=== PATIENT | female | born 1960 | race Caucasian/White ===

== ENCOUNTER 2018-05-05 05:24 | Emergency (ER) | payer OTHER ==
--- NOTE | 2018-05-05 05:46 | ER ---
Nurse's Notes [facility] Name: Gina Gomez Age: 57 yrs Sex: Female : 1960 Arrival Date: 05/05/2018 Time: 05:25 Bed 5 Private MD: Brain Middleton Diagnosis: Pneumonia Presentation: 05/05 05:33 Presenting complaint: Patient states: Cough for the past few days and SOB during the ao night. Patient also C/O shoulder pain. Transition of care: patient was not received from another setting of care. Onset of symptoms was May 01, 2018. Risk Assessment: Do you want to hurt yourself or someone else? Patient reports no desire to harm self or others. Initial Sepsis Screen: Does the patient meet any 2 criteria? No. Patient's initial sepsis screen is negative. Does the patient have a suspected source of infection? No. Patient's initial sepsis screen is negative. Care prior to arrival: None. 05:33 Method Of Arrival: Ambulatory ao 05:33 Acuity: FREDERIC 3 ao Triage Assessment: 05:38 General: Appears in no apparent distress. uncomfortable. Respiratory: Reports shortness ao of breath on exertion Onset: The symptoms/episode began/occurred yesterday, the patient has moderate shortness of breath. Historical: - Allergies: 05:36 No Known Allergies; ao - Home Meds: 05:36 Simvastatin Oral [Active]; Lisinopril Oral [Active]; ao - PMHx: 05:36 Hyperlipidemia; Hypertension; ao - PSHx: 05:36 Cholecystectomy; Hysterectomy; ao - Immunization history:: Adult Immunizations up to date. - Social history:: Smoking status: unknown. - Ebola Screening: : Patient negative for fever greater than or equal to 101.5 degrees Fahrenheit, and additional compatible Ebola Virus Disease symptoms Patient denies exposure to infectious person Patient denies travel to an Ebola-affected area in the 21 days before illness onset. - Family history:: not pertinent. - Hospitalizations: : No recent hospitalization is reported. Screenin:39 Abuse screen: Denies threats or abuse. Denies injuries from another. Nutritional ao screening: No deficits noted. Tuberculosis screening: No symptoms or risk factors identified. Fall Risk None identified. Assessment: 05:37 General: Appears in no apparent distress. comfortable, Behavior is calm, cooperative, ao appropriate for age. Pain: Complains of pain in Right shoulder. Neuro: Level of Consciousness is awake, alert, obeys commands, Oriented to person, place, time, situation, Appropriate for age Moves all extremities. Full function Speech is normal, Facial symmetry appears normal. Cardiovascular: Heart tones S1 S2 Capillary refill < 3 seconds Patient's skin is warm and dry. Rhythm is regular. Respiratory: Airway is patent Respiratory effort is even, unlabored, Respiratory pattern is regular, symmetrical, Breath sounds are clear bilaterally. GI: Abdomen is obese. : No signs and/or symptoms were reported regarding the genitourinary system. EENT: No signs and/or symptoms were reported regarding the EENT system. Derm: Skin is intact, Skin is pink, warm \T\ dry. normal, Skin temperature is warm. Musculoskeletal: Circulation, motion, and sensation intact. Range of motion: intact in all extremities. Vital Signs: 05:34 BP 147 / 74; Pulse 93; Resp 20; Temp 98.6(O); Pulse Ox 96% on R/A; Weight 104.33 kg ao (R); Height 5 ft. 5 in. (165.10 cm); Pain 2; 06:01 BP 131 / 67; Pulse 86; Resp 20; Pulse Ox 96% on R/A; ak1 05:34 Body Mass Index 38.27 (104.33 kg, 165.10 cm) ao ED Course: 05:25 Patient arrived in ED. es 05:26 Brain Middleton MD is Private Physician. es 05:32 Kalyan Caruso MD is Attending Physician. rn 05:33 Qamar Garcia RN is Primary Nurse. ao 05:34 Triage completed. ao 05:36 Arm band placed on right wrist. Patient placed in an exam room, on a stretcher, on ao pulse oximetry, Patient notified of wait time. 05:39 Patient has correct armband on for positive identification. Pulse ox on. NIBP on. ao 05:44 Brain Middleton MD is Referral Physician. rn 06:02 No provider procedures requiring assistance completed. Patient did not have IV access ak1 during this emergency room visit. Administered Medications: 05:45 Drug: LevaQUIN 750 mg Route: PO; ak1 06:01 Follow up: Response: No adverse reaction ak1 05:46 Drug: Xopenex 1.25 mg Route: Inhalation; ak1 05:46 Drug: Tussionex Pennkinetic ER 5 ml Route: PO; ak1 06:01 Follow up: Response: No adverse reaction ak1 Outcome: 05:45 Discharge ordered by . rn 06:02 Condition: stable ak1 06:02 Discharge instructions given to patient, family, Instructed on discharge instructions, follow up and referral plans. no drinking with medication, no driving heavy equipment, medication usage, Demonstrated understanding of instructions, follow-up care, medications, Prescriptions given X 3. 06:02 Discharged to home ambulatory, with family. ak1 06:02 Patient left the ED. ak1 Signatures: Sherry Wright Roman, MD MD rn Krenek, Amber, RN RN ak1 Qamar Garcia RN RN ao
--- NOTE | 2018-05-05 05:46 | EDPHYS ---
Physician Documentation [facility] Name: Gina Gomez Age: 57 yrs Sex: Female : 1960 Arrival Date: 05/05/2018 Time: 05:25 Bed 5 Private MD: Brain Middleton ED Physician Kalyan Caruso HPI: 05/05 05:40 This 57 yrs old Female presents to ER via Ambulatory with complaints of rn Cough, Breathing Difficulty. 05:40 The patient or guardian reports cough, difficulty breathing. Onset: The rn symptoms/episode began/occurred 5 day(s) ago. Severity of symptoms: At their worst the symptoms were moderate, in the emergency department the symptoms have improved. Associated signs and symptoms: Pertinent positives: rhinorrhea. The patient has not experienced similar symptoms in the past. The patient has not recently seen a physician. Reports family member with similar symptoms, but cough not improving, + mild sob, non-productive cough, no fever, no chills, sob and trouble breathing during coughing spells, but no dyspnea with exertion. Non-smoker. . Historical: - Allergies: 05:36 No Known Allergies; ao - Home Meds: 05:36 Simvastatin Oral [Active]; Lisinopril Oral [Active]; ao - PMHx: 05:36 Hyperlipidemia; Hypertension; ao - PSHx: 05:36 Cholecystectomy; Hysterectomy; ao - Immunization history:: Adult Immunizations up to date. - Social history:: Smoking status: unknown. - Ebola Screening: : Patient negative for fever greater than or equal to 101.5 degrees Fahrenheit, and additional compatible Ebola Virus Disease symptoms Patient denies exposure to infectious person Patient denies travel to an Ebola-affected area in the 21 days before illness onset. - Family history:: not pertinent. - Hospitalizations: : No recent hospitalization is reported. ROS: 05:40 Constitutional: Negative for fever, chills, and weight loss, Eyes: Negative for injury, rn pain, redness, and discharge, Neck: Negative for injury, pain, and swelling, Cardiovascular: Negative for chest pain, palpitations, and edema, Respiratory: + cough and sob Abdomen/GI: Negative for abdominal pain, nausea, vomiting, diarrhea, and constipation, MS/Extremity: Negative for injury and deformity, Skin: Negative for injury, rash, and discoloration, Neuro: Negative for headache, weakness, numbness, tingling, and seizure. Exam: 05:40 Constitutional: This is a well developed, well nourished patient who is awake, alert, rn and in no acute distress. Head/Face: Normocephalic, atraumatic. Eyes: Pupils equal round and reactive to light, extra-ocular motions intact. Lids and lashes normal. Conjunctiva and sclera are non-icteric and not injected. Cornea within normal limits. Periorbital areas with no swelling, redness, or edema. ENT: MMM, no stridor Cardiovascular: Regular rate and rhythm with a normal S1 and S2. No gallops, murmurs, or rubs. Normal PMI, no JVD. No pulse deficits. Respiratory: mild tachypnea, no wheezing, no retractions, speaking full sentences Abdomen/GI: Soft, non-tender, with normal bowel sounds. No distension or tympany. No guarding or rebound. No evidence of tenderness throughout. Skin: Warm, dry with normal turgor. Normal color with no rashes, no lesions, and no evidence of cellulitis. MS/ Extremity: Pulses equal, no cyanosis. Neurovascular intact. Full, normal range of motion. Equal circumference. Neuro: Awake and alert, GCS 15, oriented to person, place, time, and situation. Cranial nerves II-XII grossly intact. Motor strength 5/5 in all extremities. Sensory grossly intact. Cerebellar exam normal. Normal gait. Vital Signs: 05:34 BP 147 / 74; Pulse 93; Resp 20; Temp 98.6(O); Pulse Ox 96% on R/A; Weight 104.33 kg ao (R); Height 5 ft. 5 in. (165.10 cm); Pain 2/10; 06:01 BP 131 / 67; Pulse 86; Resp 20; Pulse Ox 96% on R/A; ak1 05:34 Body Mass Index 38.27 (104.33 kg, 165.10 cm) ao MDM: 05:33 Patient medically screened. rn 05:40 Differential Diagnosis: Bronchitis Upper Respiratory Infection Sinusitis Viral Syndrome rn Pneumonia. Data reviewed: vital signs, nurses notes, and as a result, I will discharge patient. Counseling: I had a detailed discussion with the patient and/or guardian regarding: the historical points, exam findings, and any diagnostic results supporting the discharge/admit diagnosis, the need for outpatient follow up, to return to the emergency department if symptoms worsen or persist or if there are any questions or concerns that arise at home. Response to treatment: the patient's symptoms have mildly improved after treatment, and as a result, I will discharge patient. Special discussion: I discussed with the patient/guardian in detail that at this point there is no indication for admission to the hospital. It is understood, however, that if the symptoms persist or worsen the patient needs to return immediately for re-evaluation. Based on the history and exam findings, there is no indication for further emergent testing or inpatient evaluation. I discussed with the patient/guardian the need to see the primary care provider for further evaluation of the symptoms. ED course: Will treat with levaquin for clinical pneumonia, non-smoker, no asthma, improved with neb treatment and cough medication, return precautions given, will f/u with pcp.. Administered Medications: 05:45 Drug: LevaQUIN 750 mg Route: PO; ak1 06:01 Follow up: Response: No adverse reaction ak1 05:46 Drug: Xopenex 1.25 mg Route: Inhalation; ak1 05:46 Drug: Tussionex Pennkinetic ER 5 ml Route: PO; ak1 06:01 Follow up: Response: No adverse reaction ak1 Disposition: 05/05/18 05:45 Discharged to Home. Impression: Pneumonia. - Condition is Stable. - Discharge Instructions: Community-Acquired Pneumonia, Adult. - Prescriptions for Levaquin 750 mg Oral Tablet - take 1 tablet by ORAL route once daily for 10 days; 10 tablet. Albuterol Sulfate 90 mcg/actuation - inhale 1-2 puff by INHALATION route every 4-6 hours; 1 Inhaler. Guaifenesin AC 10- 100 mg/5 mL Oral Liquid - take 10 milliliter by ORAL route every 4 hours As needed; 240 milliliter. - Medication Reconciliation Form, Thank You Letter, Antibiotic Education, Prescription Opioid Use form. - Work release form (05/05/18 06:03). bb - Follow up: Brain Middleton MD; When: 2 - 3 days; Reason: Recheck today's complaints, Re-evaluation by your physician. - Problem is new. - Symptoms have improved. Signatures: Kalyan Caruso MD MD rn Krenek, Amber, RN RN ak1 Qamar Garcia RN RN Sade Pedroza RN bb Corrections: (The following items were deleted from the chart) 06:02 05:45 05/05/2018 05:45 Discharged to Home. Impression: Pneumonia. Condition is Stable. ak1 Forms are Medication Reconciliation Form, Thank You Letter, Antibiotic Education, Prescription Opioid Use. Follow up: Brain Middleton; When: 2 - 3 days; Reason: Recheck today's complaints, Re-evaluation by your physician. Problem is new. Symptoms have improved. rn
[2018-05-05] MEDS ORDERED: levoFLOXacin 750 MG TAB ONE (05:47)
[2018-05-05] MEDS ORDERED: HYDROCODONE/CHLORPHEN 5 ML/OSYR ONE (05:47)
[2018-05-05] MEDS ORDERED: LEVALBUTEROL 1.25 MG/3 ML NEB ONE (05:49)
[2018-05-05 06:12] VITALS: TEMP 98.6; O2SAT 96
[2018-05-05 06:14] VITALS: BP 131/67
== END 2018-05-05 06:02 | disposition home or self-care (01) ==
LOC: ER 05:24
DX: J18.9 Pneumonia, unspecified organism (principal); I10 Essential (primary) hypertension; E78.5 Hyperlipidemia, unspecified
CPT/HCPCS: 99284

== ENCOUNTER 2018-10-03 08:44 | Emergency (ER) | payer OTHER, SELFPAY ==
--- NOTE | 2018-10-03 09:28 | ER ---
Nurse's Notes [facility] Name: Gina Gomez Age: 57 yrs Sex: Female : 1960 Arrival Date: 10/03/2018 Time: 08:45 Bed 15 Private MD: Brain Middleton Diagnosis: Conjunctivitis Presentation: 10/03 09:06 Presenting complaint: Patient states: L eye swelling and drainage that patient noticed ss this morning. "it only felt like I had something in it yesterday". Transition of care: patient was not received from another setting of care. Onset of symptoms was October 03, 2018. Risk Assessment: Do you want to hurt yourself or someone else? Patient reports no desire to harm self or others. Initial Sepsis Screen: Does the patient meet any 2 criteria? No. Patient's initial sepsis screen is negative. Does the patient have a suspected source of infection? No. Patient's initial sepsis screen is negative. Care prior to arrival: None. 09:06 Method Of Arrival: Ambulatory ss 09:06 Acuity: FREDERIC 5 ss Historical: - Allergies: 09:09 No Known Allergies; ss - Immunization history:: Adult Immunizations up to date. - Social history:: Smoking status: Patient/guardian denies using tobacco. - Ebola Screening: : Patient denies exposure to infectious person Patient denies travel to an Ebola-affected area in the 21 days before illness onset. Screenin:20 Abuse screen: Denies threats or abuse. Nutritional screening: No deficits noted. em Tuberculosis screening: No symptoms or risk factors identified. Fall Risk None identified. Assessment: 09:20 General: Appears in no apparent distress. uncomfortable, Behavior is calm, cooperative, em Denies fever. Pain: Complains of pain in left eye Pain currently is 3 out of 10 on a pain scale. Neuro: Level of Consciousness is awake, alert, obeys commands, Oriented to person, place, time, situation. Cardiovascular: Capillary refill < 3 seconds Patient's skin is warm and dry. Respiratory: Airway is patent Respiratory effort is even, unlabored, Respiratory pattern is regular, symmetrical. EENT: Eyes are tearing on left eye with exudate noted from left eye Sclera/Cornea are reddened in left eye Reports blurred vision in left eye since yesterday. Derm: Skin is intact, is healthy with good turgor, Skin is pink, warm \\T\\ dry. Musculoskeletal: Range of motion: intact in all extremities, Swelling present in left upper eyelid and left lower eyelid. 09:25 Reassessment: Patient appears in no apparent distress at this time. I agree with the sv above assessment. Vital Signs: 09:09 BP 143 / 77; Pulse 78; Resp 16; Temp 98.0(TE); Pulse Ox 97% on R/A; Weight 106.59 kg; ss Height 5 ft. 6 in. (167.64 cm); Pain 3/10; 09:09 Body Mass Index 37.93 (106.59 kg, 167.64 cm) ED Course: 08:45 Patient arrived in ED. as 08:46 Brain Middleton MD is Private Physician. as 09:09 Triage completed. ss 09:09 Arm band placed on right wrist. ss 09:13 Vinicius Wright PA is PHCP. jr8 09:13 Paulino Tapia MD is Attending Physician. jr8 09:13 Landen Garibay LVN is Primary Nurse. em 09:20 Patient has correct armband on for positive identification. Bed in low position. Call em light in reach. Side rails up X2. Adult w/ patient. 09:27 Myla Chairez MD is Referral Physician. jr8 09:50 No provider procedures requiring assistance completed. Patient did not have IV access em during this emergency room visit. Administered Medications: 09:34 Not Given (Other Intervention Used): Gentamicin Ointment 0.3 % 0.5 inches Ophthalmic em once; Left Eye 09:46 Drug: Tobramycin Ointment (0.3 %) 0.5 inches Route: Ophthalmic; Site: left eye; em 09:51 Follow up: Response: Medication administered at discharge. em Outcome: 09:28 Discharge ordered by . jr8 09:51 Discharged to home ambulatory, with family. em 09:51 Condition: good 09:51 Discharge instructions given to patient, family, Instructed on discharge instructions, follow up and referral plans. medication usage, Demonstrated understanding of instructions, follow-up care, medications, Prescriptions given X 1. 09:51 Patient left the ED. em Signatures: Rula Conley RN RN Landen Garibay LVN LVN em Anjelica Martinez Shelby, RN RN ss Vinicius Wright, RAMIREZ PA jr8
--- NOTE | 2018-10-03 09:28 | EDPHYS ---
Physician Documentation [facility] Name: Gina Gomez Age: 57 yrs Sex: Female : 1960 Arrival Date: 10/03/2018 Time: 08:45 Bed 15 Private MD: Brain Middleton ED Physician Paulino Tapia HPI: 10/03 09:24 This 57 yrs old Female presents to ER via Ambulatory with complaints of Eye jr8 Swelling. 09:24 The patient is experiencing pain, redness, tearing. Onset: The symptoms/episode jr8 began/occurred acutely, yesterday, and became worse today. Duration: the symptoms are continuous. Aggravated by nothing. Alleviated by nothing. Associated signs and symptoms: Pertinent positives: None. Patient does not utilize any form of vision correction. Severity of symptoms: At their worst the symptoms were moderate in the emergency department the symptoms are unchanged. The patient has not experienced similar symptoms in the past. The patient has not recently seen a physician. Stated that she has had a cold for the past few days. Yesterday felt that her left eye was hurting an had mild irritation. Today woke up and could not open eye because of discharge. Now has increased pain, swelling, and redness . Historical: - Allergies: 09:09 No Known Allergies; ss - Immunization history:: Adult Immunizations up to date. - Social history:: Smoking status: Patient/guardian denies using tobacco. - Ebola Screening: : Patient denies exposure to infectious person Patient denies travel to an Ebola-affected area in the 21 days before illness onset. ROS: 09:24 ENT: Negative for injury, pain, and discharge. Positive for rhinorrhea and sinus jr8 congestion Neck: Negative for injury, pain, and swelling, Cardiovascular: Negative for chest pain, palpitations, and edema, Respiratory: Negative for shortness of breath, cough, wheezing, and pleuritic chest pain, Abdomen/GI: Negative for abdominal pain, nausea, vomiting, diarrhea, and constipation, Back: Negative for injury and pain, MS/Extremity: Negative for injury and deformity, Skin: Negative for injury, rash, and discoloration, Neuro: Negative for headache, weakness, numbness, tingling, and seizure. 09:24 Eyes: Positive for discharge, matting, pain, redness, swelling, tearing, of the left eye. Exam: 09:24 Head/Face: Normocephalic, atraumatic. ENT: Nares patent. No nasal discharge, no jr8 septal abnormalities noted. Tympanic membranes are normal and external auditory canals are clear. Oropharynx with no redness, swelling, or masses, exudates, or evidence of obstruction, uvula midline. Mucous membranes moist. Neck: Trachea midline, no thyromegaly or masses palpated, and no cervical lymphadenopathy. Supple, full range of motion without nuchal rigidity, or vertebral point tenderness. No Meningismus. Cardiovascular: Regular rate and rhythm with a normal S1 and S2. No gallops, murmurs, or rubs. Normal PMI, no JVD. No pulse deficits. Respiratory: Lungs have equal breath sounds bilaterally, clear to auscultation and percussion. No rales, rhonchi or wheezes noted. No increased work of breathing, no retractions or nasal flaring. Abdomen/GI: Soft, non-tender, with normal bowel sounds. No distension or tympany. No guarding or rebound. No evidence of tenderness throughout. Back: No spinal tenderness. No costovertebral tenderness. Full range of motion. Skin: Warm, dry with normal turgor. Normal color with no rashes, no lesions, and no evidence of cellulitis. MS/ Extremity: Pulses equal, no cyanosis. Neurovascular intact. Full, normal range of motion. Neuro: Awake and alert, GCS 15, oriented to person, place, time, and situation. Cranial nerves II-XII grossly intact. Motor strength 5/5 in all extremities. Sensory grossly intact. Cerebellar exam normal. Normal gait. 09:24 Eyes: Periorbital structures: swelling, that is mild, on the left supraorbital ridge and left upper eyelid, Pupils: equal, round, and reactive to light and accomodation, Extraocular movements: intact throughout, Conjunctiva: chemosis, that is moderate, in left eye, exudate, in the left eye, injected, in the left eye, tearing noted, in left eye, Corneas: are normal, Sclera: no appreciated abnormality, Anterior chamber: normal, Lids and lashes: appear normal, Examination of the other eye reveals no obvious gross abnormality. Vital Signs: 09:09 BP 143 / 77; Pulse 78; Resp 16; Temp 98.0(TE); Pulse Ox 97% on R/A; Weight 106.59 kg; ss Height 5 ft. 6 in. (167.64 cm); Pain 3/10; 09:09 Body Mass Index 37.93 (106.59 kg, 167.64 cm) ss MDM: 09:13 Patient medically screened. jr8 09:24 Data reviewed: vital signs, nurses notes, and as a result, I will discharge patient. jr8 Data interpreted: Pulse oximetry: on room air is 97 %. Interpretation: normal. Counseling: I had a detailed discussion with the patient and/or guardian regarding: the historical points, exam findings, and any diagnostic results supporting the discharge/admit diagnosis, the need for outpatient follow up, an opthalmologist, to return to the emergency department if symptoms worsen or persist or if there are any questions or concerns that arise at home. Administered Medications: 09:34 Not Given (Other Intervention Used): Gentamicin Ointment 0.3 % 0.5 inches Ophthalmic em once; Left Eye 09:46 Drug: Tobramycin Ointment (0.3 %) 0.5 inches Route: Ophthalmic; Site: left eye; em 09:51 Follow up: Response: Medication administered at discharge. em Disposition: 10:25 Co-signature as Attending Physician, Paulino Tapia MD I agree with the assessment and kdr plan of care. Disposition: 10/03/18 09:28 Discharged to Home. Impression: Conjunctivitis. - Condition is Stable. - Discharge Instructions: Bacterial Conjunctivitis, Viral Conjunctivitis. - Prescriptions for Gentamicin 0.3 % (3 mg/gram) Ophthalmic Ointment - apply 0.5 inch by OPHTHALMIC route 2-3 times daily for 7 days; 3.5 gram. - Work release form, Medication Reconciliation Form, Thank You Letter, Antibiotic Education, Prescription Opioid Use form. - Follow up: Myla Chairez MD; When: 2 - 3 days; Reason: Recheck today's complaints, Continuance of care, Re-evaluation by your physician. - Problem is new. - Symptoms have improved. Signatures: Paulino Tapia MD MD [facility] Landen Garibay, VACUUM FORM OPERATOR VACUUM FORM OPERATOR em Alicia Coulter RN RN ss Vinicius Wright PA PA jr8 Corrections: (The following items were deleted from the chart) 09:51 09:28 10/03/2018 09:28 Discharged to Home. Impression: Conjunctivitis. Condition is em Stable. Forms are Medication Reconciliation Form, Thank You Letter, Antibiotic Education, Prescription Opioid Use. Follow up: Myla Chairez; When: 2 - 3 days; Reason: Recheck today's complaints, Continuance of care, Re-evaluation by your physician. Problem is new. Symptoms have improved. jr8
[2018-10-03] MEDS ORDERED: GENTAMICIN 0.3% OPTH DROP 5ML ONE (09:38)
[2018-10-03] MEDS ORDERED: TOBRAMYCIN SULF 0.3% OPTH OINT OPTH ONE (09:45)
[2018-10-03 09:58] VITALS: BP 143/77; TEMP 98; O2SAT 97
== END 2018-10-03 09:51 | disposition home or self-care (01) ==
LOC: ER 08:44
DX: H10.9 Unspecified conjunctivitis (principal)
CPT/HCPCS: 99283

== ENCOUNTER 2018-11-22 13:19 | Emergency (ER) | payer SELFPAY ==
[2018-11-22] MEDS ORDERED: FENTANYL CITR 100 MCG/2 ML ONE (15:03)
[2018-11-22] MEDS ORDERED: DIAZEPAM 2 MG TABLET ONE (15:03)
[2018-11-22] MEDS ORDERED: TETANUS & DIPHTHERIA TOX,ADULT 0.5 ML VIAL ONE (15:03)
--- NOTE | 2018-11-22 15:06 | RAD REPORT ---
EXAM DESCRIPTION: CT - Head C Spine Cap Wo Con - 11/22/2018 2:34 pm TECHNIQUE: Computed axial tomography of the head and cervical spine was obtained. Coronal and sagitt al reconstruction was performed Computed axial tomography of the chest, abdomen and pelvis was obtained. Contrast was not requested. All CT scans are performed using dose optimization technique as appropriate and may include automated exposure control or mA/KV adjustment according to patient size. CLINICAL HISTORY: Head and neck injury with chest and abdominal pain status post fall COMPARISON: CT chest 2011 FINDINGS: An intracranial bleed is not seen. The ventricles are normal in caliber. An extra-axial fluid collection is not noted. . Fluid is present within the sphenoid sinus which may indicate acute sinusitis. A cervical fracture is not seen. No dislocation is noted. The evaluation of mediastinum, tanmay, vessels, solid organs and bowel are limited secondary to the lac k of contrast administration. A mediastinal hematoma is not noted. A pleural effusion is not seen. A lung contusion is not present. The liver,spleen, pancreas, adrenals,kidneys and bladder appear grossly normal. IMPRESSION: 1. No acute intracranial abnormality is seen. 2. A cervical fracture is not visualized. If the patient continues have symptoms to suggest intracran ial/spinal cord pathology MRI be recommended 3. No traumatic abnormality involving the chest/abdomen/pelvis.
--- NOTE | 2018-11-22 15:07 | RAD REPORT ---
EXAM DESCRIPTION: RAD - Elbow Left 3 View - 11/22/2018 2:33 pm CLINICAL HISTORY: Left elbow pain status post trauma FINDINGS: No fracture or dislocation is seen.
--- NOTE | 2018-11-22 15:10 | RAD REPORT ---
EXAM DESCRIPTION: RAD - Wrist Right 3 View - 11/22/2018 2:33 pm CLINICAL HISTORY: Right wrist pain status post injury FINDINGS: Osteoporosis Curvilinear lucency within the distal radius likely represents a nondisplaced fracture which extends intraarticularly No dislocation
--- NOTE | 2018-11-22 15:11 | EDPHYS ---
Physician Documentation [facility] Name: Gina Gomez Age: 58 yrs Sex: Female : 1960 Arrival Date: 11/22/2018 Time: 13:22 Bed 19 Private MD: Brain Middleton ED Physician Colin Augustin HPI: 11/22 14:08 This 58 yrs old Female presents to ER via Ambulatory with complaints of Fall snw Injury. 14:08 Details of fall: The patient fell from an upright position, while walking. Onset: The snw symptoms/episode began/occurred suddenly, just prior to arrival. Associated injuries: The patient sustained injury to the head, contusion, left elbow, contusion, decreased range of motion, ecchymosis, painful injury, dorsal aspect of right wrist, contusion, decreased range of motion, painful injury, left knee, abrasion, contusion. Severity of symptoms: At their worst the symptoms were moderate. The patient has not experienced similar symptoms in the past. The patient has not recently seen a physician. 14:10 pt states she tripped over a rug in her garage. snw Historical: - Allergies: 13:33 No Known Allergies; la1 - PMHx: 13:33 Hyperlipidemia; Hypertension; la1 - Immunization history:: Adult Immunizations up to date. - Social history:: Smoking status: Patient/guardian denies using tobacco. - Ebola Screening: : No symptoms or risks identified at this time. ROS: 14:06 Constitutional: Negative for fever, chills, and weight loss, Eyes: Negative for injury, snw pain, redness, and discharge, ENT: Negative for injury, pain, and discharge, Neck: Negative for injury, pain, and swelling, Cardiovascular: Negative for chest pain, palpitations, and edema, Respiratory: Negative for shortness of breath, cough, wheezing, and pleuritic chest pain, Abdomen/GI: Negative for abdominal pain, nausea, vomiting, diarrhea, and constipation, Back: Negative for injury and pain, : Negative for injury, bleeding, discharge, and swelling. 14:06 Neuro: Negative for headache, weakness, numbness, tingling, and seizure, + frontal head trauma with fall 14:06 MS/extremity: Positive for pain to left ribs, left elbow, right wrist, and left knee. 14:06 Skin: Positive for abrasion(s). Exam: 14:03 Constitutional: This is a well developed, well nourished patient who is awake, alert, snw and in no acute distress. Head/Face: Normocephalic, atraumatic. Eyes: Pupils equal round and reactive to light, extra-ocular motions intact. Lids and lashes normal. Conjunctiva and sclera are non-icteric and not injected. Cornea within normal limits. Periorbital areas with no swelling, redness, or edema. ENT: Nares patent. No nasal discharge, no septal abnormalities noted. Tympanic membranes are normal and external auditory canals are clear. Oropharynx with no redness, swelling, or masses, exudates, or evidence of obstruction, uvula midline. Mucous membranes moist. Neck: Trachea midline, no thyromegaly or masses palpated, and no cervical lymphadenopathy. Supple, full range of motion without nuchal rigidity, or vertebral point tenderness. No Meningismus. 14:03 Cardiovascular: Regular rate and rhythm with a normal S1 and S2. No gallops, murmurs, or rubs. Normal PMI, no JVD. No pulse deficits. Respiratory: Lungs have equal breath sounds bilaterally, clear to auscultation and percussion. No rales, rhonchi or wheezes noted. No increased work of breathing, no retractions or nasal flaring. Abdomen/GI: Soft, non-tender, with normal bowel sounds. No distension or tympany. No guarding or rebound. No evidence of tenderness throughout. Back: No spinal tenderness. No costovertebral tenderness. Full range of motion. 14:03 Neuro: Awake and alert, GCS 15, oriented to person, place, time, and situation. Cranial nerves II-XII grossly intact. Motor strength 5/5 in all extremities. Sensory grossly intact. Cerebellar exam normal. Normal gait. Psych: Awake, alert, with orientation to person, place and time. Behavior, mood, and affect are within normal limits. 14:03 Chest/axilla: Inspection: normal, Palpation: tenderness, that is moderate, of the left lateral anterior chest. 14:03 Musculoskeletal/extremity: Extremities: grossly normal except: noted in the left elbow: contusion, decreased ROM, swelling, tenderness, noted in the dorsal aspect of right wrist: contusion, decreased ROM, swelling, tenderness, Circulation is intact in all extremities. 14:03 Skin: Appearance: normal except for affected area, injury, abrasion(s), small abrasion noted, contusion(s), that are deep, of the left knee. Vital Signs: 13:33 BP 137 / 68; Pulse 81; Resp 14; Temp 97.5; Pulse Ox 98% on R/A; Weight 106.59 kg; la1 Height 5 ft. 7 in. (170.18 cm); 13:50 BP 112 / 87; Pulse 87; Resp 17; Pulse Ox 95% on R/A; mh5 13:33 Body Mass Index 36.81 (106.59 kg, 170.18 cm) la1 MDM: 13:49 Patient medically screened. snw 15:15 Data reviewed: vital signs, nurses notes. Data interpreted: Pulse oximetry: on room air snw is 95 %. Interpretation: acceptable. Counseling: I had a detailed discussion with the patient and/or guardian regarding: the historical points, exam findings, and any diagnostic results supporting the discharge/admit diagnosis, the presence of at least one elevated blood pressure reading (>120/80) during this emergency department visit, radiology results, the need for outpatient follow up, to return to the emergency department if symptoms worsen or persist or if there are any questions or concerns that arise at home. Special discussion: Based on the patient's history, exam, and Dx evaluation, there is no indication for emergent intervention or inpatient Tx. It is understood by the patient/guardian that if the Sx's persist or worsen they need to return immediately for re-evaluation. I have referred the patient to see his PCP for further evaluation of high blood pressure. Based on the history and exam findings, there is no indication for further emergent testing or inpatient evaluation. I discussed with the patient/guardian the need to see the orthopedic surgeon for further evaluation of the symptoms. I discussed with the patient/guardian the need to see the primary care provider for further evaluation of the symptoms. 11/22 14:02 Order name: CT Traumagram (Head C Spine CAP wo con); Complete Time: 15:07 snw 11/22 14:02 Order name: Wrist Right 3 View XRAY; Complete Time: 15:17 snw 11/22 14:02 Order name: Elbow Left 3 View XRAY; Complete Time: 15:08 snw 04/13 14:50 Order name: Sugar Tong Forearm Splint: right; Complete Time: 16:02 snw 11/22 14:50 Order name: Sling; Complete Time: 16:02 snw 11/22 15:14 Order name: Ariel wrap-joint; Complete Time: 16:03 snw Administered Medications: 15:07 Drug: fentaNYL (PF) 50 mcg Route: IM; Site: right deltoid; em 16:05 Follow up: Response: No adverse reaction; Pain is decreased em 15:07 Drug: Valium 2 mg Route: PO; em 16:03 Follow up: Response: No adverse reaction; Pain is decreased em 15:07 Drug: Tetanus-Diphtheria Toxoid Adult 0.5 ml {Internet Marketing Analyst: [employer]. Exp: em 09/25/2020. Lot #: [id number]. } Route: IM; Site: right deltoid; 16:03 Follow up: Response: No adverse reaction em Disposition: 11/22/18 15:11 Discharged to Home. Impression: Fall on same level from slipping, tripping and stumbling with subsequent striking against object, Nondisplaced fracture of right radial styloid process - intra-articular, Other bursitis of elbow, left elbow - traumatic, Contusion of front wall of thorax, Abrasion of knee. - Condition is Stable. - Discharge Instructions: Abrasion, Elastic Bandage and RICE, Rib Contusion, Bursitis, Forearm Fracture, Fall Prevention in the Home, VIS, Tetanus, Diphtheria (Td) - CDC, Cryotherapy, Heat Therapy. - Prescriptions for Tylenol- Codeine #3 300-30 mg Oral Tablet - take 2 tablets by ORAL route every 6 hours As needed; 15 tablet. orphenadrine citrate 100 mg Oral Tablet Sustained Release - take 1 tablet by ORAL route 2 times per day As needed; 20 tablet. - Work release form, Medication Reconciliation Form, Thank You Letter, Antibiotic Education, Prescription Opioid Use form. - Follow up: Epi Escobedo MD; When: 2 - 3 days; Reason: Recheck today's complaints, Continuance of care, Re-evaluation by your physician. Addendum: 11/24/2018 08:05 Co-signature as Attending Physician, Colin Augustin MD Available for consultation at p s1 all times. . Signatures: Dispatcher [employer] EDEnedina Kellery, MANAGER PHARMACY-C MANAGER PHARMACY-Cs[facility] Landen Garibay, CHIEF DISPATCHER SERVICE CHIEF DISPATCHER SERVICE em Serafin Mcnair, RN RN la1 Colin Augustin MD MD ps1 Corrections: (The following items were deleted from the chart) 11/22 15:18 15:11 11/22/2018 15:11 Discharged to Home. Impression: Fall on same level from snw slipping, tripping and stumbling with subsequent striking against object; Nondisplaced fracture of right radial styloid process; Other bursitis of elbow, left elbow - traumatic; Contusion of front wall of thorax; Abrasion of knee. Condition is Stable. Forms are Medication Reconciliation Form, Thank You Letter, Antibiotic Education, Prescription Opioid Use. Follow up: Epi Escobedo; When: 2 - 3 days; Reason: Recheck today's complaints, Continuance of care, Re-evaluation by your physician. snw 16:13 15:18 11/22/2018 15:11 Discharged to Home. Impression: Fall on same level from em slipping, tripping and stumbling with subsequent striking against object; Nondisplaced fracture of right radial styloid process - intra-articular; Other bursitis of elbow, left elbow - traumatic; Contusion of front wall of thorax; Abrasion of knee. Condition is Stable. Discharge Instructions: Abrasion, Elastic Bandage and RICE, Rib Contusion, Bursitis, Forearm Fracture, Fall Prevention in the Home, VIS, Tetanus, Diphtheria (Td) - CDC, Cryotherapy, Heat Therapy. Prescriptions for Tylenol-Codeine #3 300-30 mg Oral Tablet - take 2 tablets by ORAL route every 6 hours As needed; 15 tablet, orphenadrine citrate 100 mg Oral Tablet Sustained Release - take 1 tablet by ORAL route 2 times per day As needed; 20 tablet. and Forms are Medication Reconciliation Form, Thank You Letter, Antibiotic Education, Prescription Opioid Use, Work release form. Follow up: Epi Escobedo; When: 2 - 3 days; Reason: Recheck today's complaints, Continuance of care, Re-evaluation by your physician. snw
--- NOTE | 2018-11-22 15:11 | ER ---
Nurse's Notes [facility] Name: Gina Gomez Age: 58 yrs Sex: Female : 1960 Arrival Date: 11/22/2018 Time: 13:22 Bed 19 Private MD: Brain Middleton Diagnosis: Fall on same level from slipping, tripping and stumbling with subsequent striking against object;Nondisplaced fracture of right radial styloid [id number];Other bursitis of elbow, left elbow-traumatic;Contusion of front wall of thorax;Abrasion of knee Presentation: 11/22 13:32 Presenting complaint: Patient states: I was at home in the garage and I tripped, I hit la1 the front of my head, denies LOC. Also C/O pain to left ribs, right wrist, left knee and left elbow. Transition of care: patient was not received from another setting of care. Onset of symptoms was November 22, 2018. Risk Assessment: Do you want to hurt yourself or someone else? Patient reports no desire to harm self or others. Initial Sepsis Screen: Does the patient meet any 2 criteria? No. Patient's initial sepsis screen is negative. Does the patient have a suspected source of infection? No. Patient's initial sepsis screen is negative. Care prior to arrival: None. 13:32 Method Of Arrival: Ambulatory la1 13:32 Acuity: FREDERIC 3 la1 Historical: - Allergies: 13:33 No Known Allergies; la1 - PMHx: 13:33 Hyperlipidemia; Hypertension; la1 - Immunization history:: Adult Immunizations up to date. - Social history:: Smoking status: Patient/guardian denies using tobacco. - Ebola Screening: : No symptoms or risks identified at this time. Screenin:00 Abuse screen: Denies threats or abuse. Nutritional screening: No deficits noted. em Tuberculosis screening: No symptoms or risk factors identified. Fall Risk None identified. Assessment: 14:00 General: Appears in no apparent distress. uncomfortable, Behavior is calm, cooperative. em Pain: Complains of pain in dorsal aspect of right wrist and left elbow and left knee and left lateral anterior chest Pain currently is 10 out of 10 on a pain scale. Pain began 1 hour ago. Neuro: Level of Consciousness is awake, alert, obeys commands, Oriented to person, place, time, situation. Cardiovascular: Capillary refill < 3 seconds Patient's skin is warm and dry. Respiratory: Airway is patent Respiratory effort is even, unlabored, Respiratory pattern is regular, symmetrical, Breath sounds are clear bilaterally. Derm: Skin is intact, is healthy with good turgor, Skin is pink, warm \T\ dry. Musculoskeletal: Circulation, motion, and sensation intact. Capillary refill < 3 seconds, Range of motion: limited in right wrist Swelling present in left elbow. Injury Description: Abrasion sustained to left knee. 15:00 Reassessment: Patient appears in no apparent distress at this time. Patient and/or em family updated on plan of care and expected duration. Pain level reassessed. Patient is alert, oriented x 3, equal unlabored respirations, skin warm/dry/pink. 16:00 Reassessment: Patient appears in no apparent distress at this time. Patient and/or em family updated on plan of care and expected duration. Pain level reassessed. Patient is alert, oriented x 3, equal unlabored respirations, skin warm/dry/pink. rates pain 5/10 Patient states feeling better. Vital Signs: 13:33 BP 137 / 68; Pulse 81; Resp 14; Temp 97.5; Pulse Ox 98% on R/A; Weight 106.59 kg; la1 Height 5 ft. 7 in. (170.18 cm); 13:50 BP 112 / 87; Pulse 87; Resp 17; Pulse Ox 95% on R/A; mh5 13:33 Body Mass Index 36.81 (106.59 kg, 170.18 cm) la1 ED Course: 13:22 Patient arrived in ED. mr 13:22 Brain Middleton MD is Private Physician. mr 13:33 Triage completed. la1 13:33 Arm band placed on left wrist. la1 13:46 Fidelina Crow FNP-C [facility]. snw 13:46 Colin Augustin MD is Attending Physician. snw 13:50 Landen Garibay LVN is Primary Nurse. em 13:51 Patient has correct armband on for positive identification. Bed in low position. Call mh5 light in reach. Side rails up X 1. Adult w/ patient. Pulse ox on. NIBP on. 14:34 CT Traumagram (Head C Spine CAP wo con) In Process Unspecified. EDMS 14:34 Wrist Right 3 View XRAY In Process Unspecified. EDMS 14:34 Elbow Left 3 View XRAY In Process Unspecified. EDMS 15:09 Epi Escobedo MD is Referral Physician. snw 16:12 No provider procedures requiring assistance completed. em 16:12 Patient did not have IV access during this emergency room visit. em Administered Medications: 15:07 Drug: fentaNYL (PF) 50 mcg Route: IM; Site: right deltoid; em 16:05 Follow up: Response: No adverse reaction; Pain is decreased em 15:07 Drug: Valium 2 mg Route: PO; em 16:03 Follow up: Response: No adverse reaction; Pain is decreased em 15:07 Drug: Tetanus-Diphtheria Toxoid Adult 0.5 ml {Facility Security Officer: [employer]. Exp: em 09/25/2020. Lot #: [id number]. } Route: IM; Site: right deltoid; 16:03 Follow up: Response: No adverse reaction em Outcome: 15:11 Discharge ordered by MD. snw 16:12 Discharged to home ambulatory, with family. em 16:12 Condition: good 16:12 Discharge instructions given to patient, family, Instructed on discharge instructions, follow up and referral plans. no drinking with medication, no driving heavy equipment, medication usage, Demonstrated understanding of instructions, follow-up care, medications, Prescriptions given X 2. 16:13 Patient left the ED. em Signatures: Dispatcher [employer] EDMS Fidelina Crow, JEFFERSONC BUNCHER OPERATOR-Meenakshi Stuart Edgar, ICING MIXER ICING MIXER Serafin Mcnair, MAN RN Divina Riggs [facility]
[2018-11-22 17:57] VITALS: TEMP 97.5
[2018-11-22 17:58] VITALS: BP 112/87; O2SAT 95
== END 2018-11-22 16:13 | disposition home or self-care (01) ==
LOC: ER 13:19
PROC: 2W3CX1Z Immobilization of Right Lower Arm using Splint (ICD-10-PCS; principal; 2018-11-22)
DX: S00.93XA Contusion of unspecified part of head, initial encounter (principal); S20.219A Contusion of unspecified front wall of thorax, initial encounter; S52.511A Displaced fracture of right radial styloid process, initial encounter for closed fracture; S80.212A Abrasion, left knee, initial encounter; W01.10XA Fall on same level from slipping, tripping and stumbling with subsequent striking against unspecified object, initial encounter; Y92.008 Other place in unspecified non-institutional (private) residence as the place of occurrence of the external cause; Z23 Encounter for immunization
CPT/HCPCS: 70450; 71250; 72125; 90714; 96372; 99284; J3010

== ENCOUNTER 2020-04-08 15:23 | Observation (INO) | payer OTHER ==
[2020-04-08 17:07] LABS: Absolute Lymphocytes (CBC) 1.6 K/uL (0.7-4.9); Basophils % 0.8 % (0-1.3); Hematocrit 40.4 % (36.0-45.0); Lymphocytes % 10.3 % (15.3-44.8); MPV 10.5 fL (7.6-11.3); RBC Red Blood Cell Count 4.51 M/uL (3.86-4.86)
[2020-04-08 17:08] LABS: Protime INR 1.03
[2020-04-08] MEDS ORDERED: LEVALBUTEROL 1.25 MG/3 ML NEB ONE ×2 (17:08→17:10)
[2020-04-08] MEDS ORDERED: ACETAMINOPHEN 325 MG TABLET ONE (17:18)
[2020-04-08] MEDS ORDERED: lisinopriL 20 MG TAB ONE (17:18)
[2020-04-08 17:24] LABS: ALT/SGPT 18 U/L (12-78); AST/SGOT 10 U/L (15-37); Albumin 3.5 g/dL (3.4-5.0); Alkaline Phosphatase 113 U/L (45-117); BUN Blood Urea Nitrogen 7 mg/dL (7-18); Bicarbonate 29 mmol/L (21-32); Bilirubin Direct < 0.1 mg/dL (0-0.2); Bilirubin Total 0.3 mg/dL (0.2-1.0); Glucose Level 100 mg/dL (74-106); Magnesium 1.8 mg/dL (1.8-2.4); NT PRO-BNP 381 pg/mL (<125); Potassium 3.3 mmol/L (3.5-5.1); Protein, Total 7.9 g/dL (6.4-8.2); Sodium Level 140 mmol/L (136-145); Troponin (Emerg Dept Use Only) < 0.02 ng/mL (0.0-0.045)
--- NOTE | 2020-04-08 17:59 | RAD REPORT ---
EXAM DESCRIPTION: RAD - Chest Single View - 04/08/2020 5:15 pm CLINICAL HISTORY: SOB Chest pain. COMPARISON: CHEST PA AND LAT 2 VIEW dated 01/01/2014; CHEST SINGLE VIEW dated 05/03/2012 FINDINGS: Portable technique limits examination quality. The lungs are grossly clear. The heart is normal in size. No displaced fractures. IMPRESSION: No acute intrathoracic process suspected.
--- NOTE | 2020-04-08 18:11 | EDPHYS ---
Physician Documentation [facility] Name: Gina Gomez Age: 59 yrs Sex: Female : 1960 Arrival Date: 04/08/2020 Time: 15:27 Bed 20 Private MD: ED Physician Paulino Tapia HPI: 04/08 18:41 This 59 yrs old Female presents to ER via Ambulatory with complaints of kdr Cough, Shortness Of Breath, High Blood Pressure, Headache. 18:41 The patient or guardian reports cough, that is intermittent, difficulty breathing. kdr Onset: The symptoms/episode began/occurred suddenly, this morning. Severity of symptoms: At their worst the symptoms were mild, moderate, just prior to arrival, in the emergency department the symptoms are unchanged. Modifying factors: The symptoms are alleviated by Nothing the symptoms are aggravated by exertion. Associated signs and symptoms: Pertinent positives: nausea, this patient has no pertinent positive symptoms. The patient has not experienced similar symptoms in the past. The patient has not recently seen a physician. Historical: - Allergies: 15:49 No Known Allergies; aa5 - Home Meds: 15:49 None [Active]; aa5 - PMHx: 15:49 Hyperlipidemia; Hypertension; aa5 - Immunization history:: Adult Immunizations unknown. - Social history:: Smoking status: Patient denies any tobacco usage or history of. ROS: 18:41 Constitutional: Negative for fever, chills, and weight loss, Eyes: Negative for injury, kdr pain, redness, and discharge, ENT: Negative for injury, pain, and discharge, Neck: Negative for injury, pain, and swelling, Abdomen/GI: Negative for abdominal pain, nausea, vomiting, diarrhea, and constipation, Back: Negative for injury and pain, : Negative for injury, bleeding, discharge, and swelling, MS/Extremity: Negative for injury and deformity, Skin: Negative for injury, rash, and discoloration, Neuro: Negative for headache, weakness, numbness, tingling, and seizure activity. Psych: Negative for depression, anxiety, suicide ideation, homicidal ideation, and hallucinations, Allergy/Immunology: Negative for hives, rash, and allergies, Endocrine: Negative for neck swelling, polydipsia, polyuria, polyphagia, and marked weight changes, Hematologic/Lymphatic: Negative for swollen nodes, abnormal bleeding, and unusual bruising. 18:41 Cardiovascular: Positive for palpitations, Negative for chest pain, edema, orthopnea. 18:41 Respiratory: Positive for cough, with no reported sputum, dyspnea on exertion, shortness of breath, at rest. wheezing, Negative for hemoptysis, orthopnea. Exam: 18:41 Constitutional: This is a well developed, well nourished patient who is awake, alert, kdr and in no acute distress. Head/Face: Normocephalic, atraumatic. Eyes: Pupils equal round and reactive to light, extra-ocular motions intact. Lids and lashes normal. Conjunctiva and sclera are non-icteric and not injected. Cornea within normal limits. Periorbital areas with no swelling, redness, or edema. Neck: Trachea midline, no thyromegaly or masses palpated, and no cervical lymphadenopathy. Supple, full range of motion without nuchal rigidity, or vertebral point tenderness. No Meningismus. Chest/axilla: Normal chest wall appearance and motion. Nontender with no deformity. No lesions are appreciated. Abdomen/GI: Soft, non-tender, with normal bowel sounds. No distension or tympany. No guarding or rebound. No evidence of tenderness throughout. Back: No spinal tenderness. No costovertebral tenderness. Full range of motion. Skin: Warm, dry with normal turgor. Normal color with no rashes, no lesions, and no evidence of cellulitis. MS/ Extremity: Pulses equal, no cyanosis. Neurovascular intact. Full, normal range of motion. Neuro: Awake and alert, GCS 15, oriented to person, place, time, and situation. Cranial nerves II-XII grossly intact. Motor strength 5/5 in all extremities. Sensory grossly intact. Cerebellar exam normal. Normal gait. Psych: Awake, alert, with orientation to person, place and time. Behavior, mood, and affect are within normal limits. 18:41 Cardiovascular: Rate: tachycardic, actual rate is 120 bpm, Rhythm: regular, Pulses: no pulse deficits are appreciated, Heart sounds: normal, Edema: is not appreciated. 19:29 ECG was reviewed by the Attending Physician. kdr Vital Signs: 15:46 BP 191 / 73; Pulse 105; Resp 26 S; Temp 98.9(O); Pulse Ox 95% on R/A; Weight 104.33 kg aa5 (R); Height 5 ft. 6 in. (167.64 cm) (R); Pain 5/10; 16:00 BP 197 / 85; Pulse 97; Resp 23 S; Pulse Ox 94% on R/A; jl7 16:51 BP 176 / 81; Pulse 97; Resp 17; Pulse Ox 95% ; jl7 17:00 BP 199 / 99; Pulse 104; Resp 23 S; Pulse Ox 95% on R/A; jl7 18:03 BP 178 / 87; Pulse 119; Resp 24 S; Pulse Ox 93% on R/A; jl7 18:50 BP 188 / 73; Pulse 114; Resp 21 S; Pulse Ox 95% on R/A; Pain 4/10; jl7 19:12 BP 163 / 64; Pulse 117; Resp 17; Pulse Ox 95% ; jl7 20:21 BP 169 / 64; Pulse 115; Resp 18; Pulse Ox 94% on R/A; vc 21:04 BP 154 / 90; Pulse 110; Resp 19; Pulse Ox 93% on R/A; vc 21:31 BP 154 / 90; Pulse 104; Resp 20 S; Pulse Ox 96% on R/A; vc 15:46 Body Mass Index 37.12 (104.33 kg, 167.64 cm) aa5 MDM: 18:11 Patient medically screened. kdr 18:39 Data reviewed: vital signs, nurses notes. ED course: The patient maintained an O2 sat kdr of 92% with ambulation but became increasingly tachycardiac and dyspneic - will admit for observation. 04/08 16:50 Order name: Basic Metabolic Panel; Complete Time: 18:03 [facility] 04/08 16:50 Order name: CBC with Diff; Complete Time: 18:03 [facility] 04/08 16:50 Order name: LFT's; Complete Time: 18:03 [facility] 04/08 16:50 Order name: Magnesium; Complete Time: 18:03 [facility] 04/08 16:50 Order name: NT PRO-BNP; Complete Time: 18:03 [facility] 04/08 16:50 Order name: PT-INR; Complete Time: 18:03 [facility] 04/08 16:50 Order name: Troponin (emerg Dept Use Only); Complete Time: 18:03 [facility] 04/08 19:35 Order name: Urinalysis [facility] 04/08 19:35 Order name: Basic Metabolic Panel [facility] 04/08 19:35 Order name: Basic Metabolic Panel [facility] 04/08 19:35 Order name: CBC with Automated Diff EDMS 04/08 19:35 Order name: CBC with Automated Diff MS 04/08 19:35 Order name: Magnesium EDMS 04/08 16:50 Order name: XRAY Chest (1 view); Complete Time: 18:03 7 04/08 16:50 Order name: EKG; Complete Time: 16:51 7 04/08 16:50 Order name: Cardiac monitoring; Complete Time: 16:50 7 04/08 16:50 Order name: EKG - Nurse/Tech; Complete Time: 16:50 [facility] 04/08 16:50 Order name: IV Saline Lock; Complete Time: 16:50 [facility] 04/08 18:33 Order name: CT Chest For PE Angio kdr 04/08 19:35 Order name: Heart Healthy [facility]WI 04/08 19:35 Order name: Magnesium [facility] 04/08 19:50 Order name: SARS-COV-2 RT PCR [facility] 04/08 16:50 Order name: Labs collected and sent; Complete Time: 16:50 [facility] 04/08 16:50 Order name: O2 Per Protocol; Complete Time: 16:50 [facility] 04/08 16:50 Order name: O2 Sat Monitoring; Complete Time: 16:50 EC:29 Rate is 90 beats/min. Rhythm is regular, Normal Sinus Rhythm with No ectopy. QRS [place] kdr is Normal. [place] interval is normal. QRS interval is normal. Clinical impression: NSR w/ Non-specific ST/T Changes. Administered Medications: 17:05 Drug: Lisinopril 20 mg Route: PO; 7 18:00 Follow up: Response: No adverse reaction; Blood pressure is unchanged jl7 17:05 Drug: Tylenol 650 mg Route: PO; 7 18:00 Follow up: Response: No adverse reaction; Pain is decreased jl7 17:10 Drug: Xopenex (3) 1.25 mg Route: Inhalation; jl7 17:45 Follow up: Response: No adverse reaction 7 18:36 Drug: NS 0.9% 1000 ml Route: IV; Rate: 1 bolus; Site: right forearm; jl7 19:36 Follow up: IV Status: Completed infusion; IV Intake: 1000ml vc 18:38 Drug: Lovenox 1 mg/kg Route: Sub-Q; Site: abdomen; jl7 19:00 Follow up: Response: No adverse reaction vc 21:01 CANCELLED (Duplicate Order): Tylenol 1000 mg PO once vc 21:01 Drug: Motrin 600 mg Route: PO; vc 22:42 Follow up: Response: No adverse reaction; Medication administered at discharge. vc Disposition: 04/08/20 18:39 Hospitalization ordered by Yeny Araiza for Observation. Preliminary diagnosis are Shortness of breath, Tachycardia, unspecified. - Bed requested for Telemetry/MedSurg (observation). - Status is Observation. vc - Condition is Fair. - Problem is new. - Symptoms are unchanged. Signatures: Dispatcher [employer] [facility] Glo Bauman RN RN Paulino Mccracken MD MD kdr Calderon, Audri, RN RN aa5 Vivienne Quiroz RN RN jl7 Amalia Arnold RN RN vc Corrections: (The following items were deleted from the chart) 18:38 18:11 04/08/2020 18:11 Discharged to Home. Impression: Shortness of breath; Cough; kdr Hypertensive heart disease. Condition is Stable. Forms are Medication Reconciliation Form, Thank You Letter, Antibiotic Education, Prescription Opioid Use. Follow up: Private Physician; When: 2 - 3 days; Reason: If symptoms return, Further diagnostic work-up, Recheck today's complaints, Continuance of care, Re-evaluation by your physician. Problem is new. Symptoms have improved. kdr 18:55 18:10 CORONAVIRUS+MR.LAB.BRZ ordered. [facility] 20:10 18:39 Hospitalization Ordered by Yeny Araiza MD for Observation. Preliminary dw diagnosis is Shortness of breath; Tachycardia, unspecified. Bed requested for Telemetry/MedSurg (observation). Status is Observation. Condition is Fair. Problem is new. Symptoms are unchanged. kdr 21:01 21:01 Tylenol 1000 mg PO once ordered. vc vc 21:47 20:10 04/08/2020 18:39 Hospitalization Ordered by Yeny Araiza MD for Observation. vc Preliminary diagnosis is Shortness of breath; Tachycardia, unspecified. Bed requested for Telemetry/MedSurg (observation). Status is Observation. Condition is Fair. Problem is new. Symptoms are unchanged. dw
--- NOTE | 2020-04-08 18:11 | ER ---
Nurse's Notes [facility] Name: Gina Gomez Age: 59 yrs Sex: Female : 1960 Arrival Date: 04/08/2020 Time: 15:27 Bed 20 Private MD: Diagnosis: Shortness of breath;Tachycardia, unspecified Presentation: 04/08 15:46 Chief complaint: Patient states: "I woke up this morning with a cough, short of breath, aa5 sore throat, headache, and my blood pressure was 212/106". Pt denies fever. Pt reports cough is non-productive. Coronavirus screen: Client denies travel out of the [place] in the last 14 days. cough unrelated to allergies, difficulty breathing, headache, shortness of breath, sore throat, Client presents with at least one sign or symptom that may indicate coronavirus-19. Standard/surgical mask placed on the client. Provider contacted for isolation considerations. Ebola Screen: Patient negative for fever greater than or equal to 101.5 degrees Fahrenheit, and additional compatible Ebola Virus Disease symptoms. Initial Sepsis Screen: Does the patient meet any 2 criteria? RR > 20 per min. HR > 90 bpm. Yes Does the patient have a suspected source of infection? No. Patient's initial sepsis screen is negative. Risk Assessment: Do you want to hurt yourself or someone else? Patient reports no desire to harm self or others. Onset of symptoms was March 2020. 15:46 Acuity: FREDERIC 2 aa5 15:46 Method Of Arrival: Ambulatory aa5 Historical: - Allergies: 15:49 No Known Allergies; aa5 - Home Meds: 15:49 None [Active]; aa5 - PMHx: 15:49 Hyperlipidemia; Hypertension; aa5 - Immunization history:: Adult Immunizations unknown. - Social history:: Smoking status: Patient denies any tobacco usage or history of. Screenin:00 Abuse screen: Denies threats or abuse. Denies injuries from another. Nutritional jl7 screening: No deficits noted. Tuberculosis screening: No symptoms or risk factors identified. Fall Risk IV access (20 points). Total Díaz Fall Scale indicates No Risk (0-24 pts). Assessment: 15:55 General: Appears in no apparent distress. uncomfortable, Behavior is cooperative, jl7 appropriate for age, anxious. Pain: Complains of pain in ALEXANDER Pain currently is 5 out of 10 on a pain scale. Neuro: Level of Consciousness is awake, alert, obeys commands, Oriented to person, place, time, situation. Cardiovascular: Denies chest pain, Patient's skin is warm and dry. Rhythm is sinus tachycardia. Respiratory: Reports shortness of breath at rest on exertion cough that is non-productive, Airway is patent Respiratory effort is even, labored, Respiratory pattern is symmetrical, tachypnea not auscultated. EENT: Oral mucosa is moist. Throat is reddened Reports pain in sore throat. Derm: Skin is pink, warm \\T\\ dry. 16:51 Reassessment: Patient appears in no apparent distress at this time. No changes from jl7 previously documented assessment. Patient and/or family updated on plan of care and expected duration. Pain level reassessed. Patient is alert, oriented x 3, equal unlabored respirations, skin warm/dry/pink. 18:15 Reassessment: Ambulated pt approximately 75 ft, pt HR 125, O2 92%, reports increased jl7 SOB; ERD notified. 19:00 Reassessment: Assumed care from MAN Palafox. vc 19:00 Reassessment: Patient and/or family updated on plan of care and expected duration. Pain vc level reassessed. Patient is alert, oriented x 3, equal unlabored respirations, skin warm/dry/pink. 20:00 Reassessment: Patient and/or family updated on plan of care and expected duration. Pain vc level reassessed. Patient is alert, oriented x 3, equal unlabored respirations, skin warm/dry/pink. Patient up to bedside commode, heart rate increased to 115 then lowered to 99 once back in bed, will continue to monitor. 21:04 Reassessment: Attempted to call report to second floor, receiving nurse to call back vc for report. 21:32 Reassessment: called report to Andrea CONWAY for room 217. vc Vital Signs: 15:46 BP 191 / 73; Pulse 105; Resp 26 S; Temp 98.9(O); Pulse Ox 95% on R/A; Weight 104.33 kg aa5 (R); Height 5 ft. 6 in. (167.64 cm) (R); Pain 5/10; 16:00 BP 197 / 85; Pulse 97; Resp 23 S; Pulse Ox 94% on R/A; jl7 16:51 BP 176 / 81; Pulse 97; Resp 17; Pulse Ox 95% ; jl7 17:00 BP 199 / 99; Pulse 104; Resp 23 S; Pulse Ox 95% on R/A; jl7 18:03 BP 178 / 87; Pulse 119; Resp 24 S; Pulse Ox 93% on R/A; jl7 18:50 BP 188 / 73; Pulse 114; Resp 21 S; Pulse Ox 95% on R/A; Pain 4/10; jl7 19:12 BP 163 / 64; Pulse 117; Resp 17; Pulse Ox 95% ; jl7 20:21 BP 169 / 64; Pulse 115; Resp 18; Pulse Ox 94% on R/A; vc 21:04 BP 154 / 90; Pulse 110; Resp 19; Pulse Ox 93% on R/A; vc 21:31 BP 154 / 90; Pulse 104; Resp 20 S; Pulse Ox 96% on R/A; vc 15:46 Body Mass Index 37.12 (104.33 kg, 167.64 cm) aa Vitals: 20:21 Cardiac Rhythm Assessment. ED Course: 15:27 Patient arrived in ED. mr 15:46 Arm band placed on. aa5 15:49 Triage completed. aa 15:50 Vivienne Quiroz, RN is Primary Nurse. jl7 15:50 Patient has correct armband on for positive identification. Placed in gown. Bed in low jl7 position. Call light in reach. Side rails up X 1. quality assurance monitor on. Pulse ox on. NIBP on. Warm blanket given. 16:00 Initial lab(s) drawn, by pa, EKG done, by ED staff, reviewed by Paulino Tapia MD. jl7 Inserted saline lock: 20 gauge in right forearm, using aseptic technique. Blood collected. 16:10 Paulino Tapia MD is Attending Physician. kdr 17:16 XRAY Chest (1 view) In Process Unspecified. EDMS 18:38 Yeny Araiza MD is Hospitalizing Provider. kdr 19:02 CT Chest For PE Angio In Process Unspecified. EDMS 21:30 No provider procedures requiring assistance completed. Patient admitted, IV remains in vc place. Administered Medications: 17:05 Drug: Lisinopril 20 mg Route: PO; jl7 18:00 Follow up: Response: No adverse reaction; Blood pressure is unchanged 7 17:05 Drug: Tylenol 650 mg Route: PO; jl7 18:00 Follow up: Response: No adverse reaction; Pain is decreased jl7 17:10 Drug: Xopenex (3) 1.25 mg Route: Inhalation; 7 17:45 Follow up: Response: No adverse reaction 7 18:36 Drug: NS 0.9% 1000 ml Route: IV; Rate: 1 bolus; Site: right forearm; jl7 19:36 Follow up: IV Status: Completed infusion; IV Intake: 1000ml vc 18:38 Drug: Lovenox 1 mg/kg Route: Sub-Q; Site: abdomen; 7 19:00 Follow up: Response: No adverse reaction vc 21:01 CANCELLED (Duplicate Order): Tylenol 1000 mg PO once vc 21:01 Drug: Motrin 600 mg Route: PO; vc 22:42 Follow up: Response: No adverse reaction; Medication administered at discharge. vc Intake: 19:36 IV: 1000ml; Total: 1000ml. vc Outcome: 18:11 Discharge ordered by . kdr 18:39 Decision to Hospitalize by Provider. kdr 21:45 Admitted to Med/surg accompanied by tech, via wheelchair, room 217, with chart, Report vc called to MAN Mendez 21:45 Condition: good 21:45 Instructed on the need for admit. vc 21:47 Patient left the ED. vc Signatures: Dispatcher [employer] EDMS Paulino Tapia MD MD kdr Rivera, Mary mr DelcidAnnabel RN RN [id number] Vivienne Quiroz RN RN jl7 Amalia Arnold RN RN vc
[2020-04-08] MEDS ORDERED: NA CHLORIDE 0.9% 1,000 ML ONE (18:47)
[2020-04-08] MEDS ORDERED: ENOXAPARIN 100 MG/ML SYR SQ ONE (18:47)
--- NOTE | 2020-04-08 19:11 | RAD REPORT ---
EXAM DESCRIPTION: CT - Chest For Pe Angio - 04/08/2020 7:03 pm CLINICAL HISTORY: Chest pain. Cough;Dyspnea;SOB COMPARISON: CTANGIO CHEST FOR PE dated 05/03/2012 TECHNIQUE: CT angiogram of the pulmonary arteries was performed with MIP. All CT scans are performed using dose optimization technique as appropriate and may include automated exposure control or mA/KV adjustment according to patient size. FINDINGS: No evidence of pulmonary thromboembolism. No acute aortic finding demonstrated. Mild diffuse COPD is present with linear areas of atelectasis bilaterally. No significant pericardial or pleural fluid. No concerning bony finding. IMPRESSION: No evidence of pulmonary thromboembolism. Mild diffuse COPD.
--- NOTE | 2020-04-08 20:37 | P.HP ---
Certification for Inpatient Patient admitted to: Observation With expected LOS: <2 Midnights Patient will require the following post-hospital care: None Practitioner: I am a practitioner with admitting privileges, knowledge of patient current condition, hospital course, and medical plan of care. Services: Services provided to patient in accordance with Admission requirements found in Title 42 Section 412.3 of the Code of Federal Regulations <FrankmeetaCharles sargent - Last Filed: 04/08/20 20:30> Patient History Date of Service: 04/08/20 Reason for admission: Hypertensive emergency History of Present Illness: 59-year-old female with past medical history of essential hypertension and hyperlipidemia and morbid obesity presents to the emergency room complaining of shortness of breath, high blood pressure and headache. Patient states that she has a [employer] employee. That she ran out of her medications and has not gone to see your PCP to get her prescription renewed. On arrival to the emergency room patient was found to have a blood pressure of 199/99. She had some labored breathing and was tachycardic with a heart rate of 119. Patient was given medication in the ER which brought her blood pressure down to 163/64 they continue tachycardic at 117 despite having oxygen saturations of 95% on room air. Patient is still having mild labored breathing. Patient states she takes lisinopril but does not know her dose. Patient was given lisinopril 20 mg in the ED which improved her blood pressure. Patient be placed in observation and further evaluated. Home medications list reviewed: No - Past Medical/Surgical History Diabetic: No -: Essential hypertension -: Hyperlipidemia -: none Psychosocial/ Personal History: Lives at home - Family History Family History: Reviewed- Non-Contributory - Social History Smoking Status: Never smoker Alcohol use: No CD- Drugs: No Caffeine use: No Place of Residence: Home <Charles Carrillo - Last Filed: 04/08/20 20:30> Date of Service: 04/10/20 <Stuart Correa - Last Filed: 04/10/20 12:36> Allergies No Known Allergies Allergy (Verified 04/08/20 22:01) Home Medications: Lisinopril/Hydrochlorothiazide [Zestoretic 20-12.5 mg Tablet] 1 each PO DAILY 12/17/14 Simvastatin [Zocor] 5 mg PO BEDTIME 12/17/14 Amlodipine [Norvasc*] 2.5 mg PO DAILY #30 tab 04/10/20 Benzonatate [Tessalon Perle*] 100 mg PO TID PRN #15 cap 04/10/20 carvediloL [Coreg*] 3.125 mg PO BID 6AM 6PM #60 tab 04/10/20 Review of Systems General: As per HPI Eyes: Unremarkable ENT: Unremarkable Respiratory: Shortness of Breath, As per HPI Cardiovascular: Unremarkable Gastrointestinal: Unremarkable Genitourinary: Unremarkable Musculoskeletal: Unremarkable Integumentary: Unremarkable Neurological: Unremarkable Lymphatics: Unremarkable <Charles Carrillo - Last Filed: 04/08/20 20:30> Physical Examination - Vital Signs Temperature: 98.9 F Blood Pressure: 163/64 Pulse: 117 Respirations: 24 Pulse Ox (%): 95 (RA) - Physical Exam General: Alert, In no apparent distress, Oriented x3 HEENT: Atraumatic, Normocephalic, PERRLA, Mucous membr. moist/pink Neck: Supple, No Thyromegaly, Other (Trachea midline) Respiratory: Clear to auscultation bilaterally, Normal air movement, Other (Mild labored breathing) Cardiovascular: No edema, Normal pulses, Regular rate/rhythm Capillary refill: <2 Seconds Gastrointestinal: Normal bowel sounds, Soft and benign, Non-distended Musculoskeletal: No clubbing, No swelling, No contractures, No erythema Integumentary: No rashes, No breakdown, No significant lesion Neurological: Normal gait, Normal speech, Normal strength at 5/5 x4 extr, Normal tone - Studies Laboratory Data (last 24 hrs) 04/08/20 16:55: PT 12.2, INR 1.03 04/08/20 16:55: WBC 15.1 H, Hgb 13.4, Hct 40.4, Plt Count 300 04/08/20 16:55: Sodium 140, Potassium 3.3 L, BUN 7, Creatinine 0.63, Glucose 100, Magnesium 1.8, Total Bilirubin 0.3, AST 10 L, ALT 18, Alkaline Phosphatase 113 <Charles Carrillo - Last Filed: 04/08/20 20:30> Assessment and Plan - Plan Impression: Hypertensive emergency complicated by tachycardia and mild labored breathing: Noncompliance with medication: Hyperlipidemia: Plan: Hypertensive emergency complicated by tachycardia and mild labored breathing: Blood pressure on arrival was 199/99 with a pulse rate of 119 and respiratory rate of 26. Given medications in the ER and restarted lisinopril 20 mg daily. Patient's blood pressure improved and on last check was 163/64 but patient was still tachycardic at 117. Patient ran out of medication and never went to see your PCP. Unknown length of time. Will also restart her hydrochlorothiazide 12.5 mg daily. Will order hydralazine 10 mg q.4 hr p.r.n. for systolic blood pressure greater than 160 and a diastolic blood pressure greater than 100. Monitor blood pressure. Noncompliance with medication: Counseled about taking blood pressure medications on a regular basis and seeing her PCP on a regular basis. Verbalize understanding. Hyperlipidemia: Will resume all medications once verified. Discharge Plan: Home Plan to discharge in: 48 Hours - Advance Directives Does patient have a Living Will: No Does patient have a Durable POA for Healthcare: No - Code Status/Comfort Care Code Status Assessed: Yes Time Spent Managing Pts Care (In Minutes): 55 <Charles Carrillo - Last Filed: 04/08/20 20:30> Physician Review: Patient Assessed, Agree with Above Assessment and Plan <Stuart Correa - Last Filed: 04/10/20 12:36>
[2020-04-08] MEDS ORDERED: IBUPROFEN 200 MG TAB PO ONE (21:13)
[2020-04-08] MEDS: HYDRALAZINE HCL 20 MG/ML VIAL IV PRN (22:19)
[2020-04-08 23:28] LABS: C-Reactive Protein 7.07 mg/L (<3.00)
[2020-04-09] MEDS ORDERED: POTASSIUM 25 MEQ EFFERV TAB PO ONE (00:13)
[2020-04-09 00:24] VITALS: BMI 36.8
[2020-04-09] MEDS: BENZONATATE 100 MG CAP PO PRN ×3 (02:20→19:42)
[2020-04-09 02:55] LABS: Urine Appearance CLEAR; Urine Bilirubin NEGATIVE (NEG); Urine Blood NEGATIVE (NEG); Urine Color YELLOW; Urine Glucose NEGATIVE (NEG); Urine Protein NEGATIVE (NEG); Urine Specific Gravity 1.025 (1.005-1.030); Urine Urobilinogen 0.2 mg/dL (0.2-1.0)
[2020-04-09 03:13] LABS: Urine Microscopic Reflex ORDER UMIC
[2020-04-09 03:44] LABS: Urine Bacteria 20-50 /HPF (<20); Urine Culture Reflex Order REFLEXED; Urine RBC <5 /HPF (NONE SEEN)
--- NOTE | 2020-04-09 05:47 | EKG ---
Test Date: 2020-04-08 Test Time: 16:01:11 Renal Medicine Specialist: ELENA MEASUREMENT RESULTS: Intervals: Rate: 90 NH: 158 QRSD: 94 QT: 374 QTc: 457 Corinna: P: 95 NH: 158 QRS: -43 T: 44 INTERPRETIVE STATEMENTS: Normal sinus rhythm Left axis deviation Minimal voltage criteria for LVH, may be normal variant Abnormal ECG Compared to ECG 05/03/2012 23:42:48 Left-axis deviation now present Left ventricular hypertrophy now present Electronically Signed On 04-09-20 05:45:14 CDT by Guillermo Cid
[2020-04-09 07:00] LABS: Absolute Lymphocytes (CBC) 2.6 K/uL (0.7-4.9); Basophils % 0.7 % (0-1.3); Hematocrit 37.1 % (36.0-45.0); Lymphocytes % 23.8 % (15.3-44.8); MPV 10.5 fL (7.6-11.3); RBC Red Blood Cell Count 4.16 M/uL (3.86-4.86)
[2020-04-09 07:14] LABS: BUN Blood Urea Nitrogen 7 mg/dL (7-18); Bicarbonate 32 mmol/L (21-32); Glucose Level 100 mg/dL (74-106); Magnesium 1.9 mg/dL (1.8-2.4); Potassium 3.2 mmol/L (3.5-5.1); Sodium Level 142 mmol/L (136-145)
[2020-04-09] MEDS: ENOXAPARIN 40 MG/0.4 ML SQ SCH (08:30)
[2020-04-09] MEDS: lisinopriL 20 MG TAB PO SCH (08:31)
[2020-04-09] MEDS: hydroCHLOROthiazide 25 MG TAB PO SCH (08:31)
[2020-04-09] MEDS ORDERED: POTASSIUM CL SA 10 MEQ TAB PO ONE (09:00)
[2020-04-09] MEDS ORDERED: HYDROCODONE/APAP 7.5/325 MG TAB PO PRN (10:08)
--- NOTE | 2020-04-09 10:08 | P.PN ---
Subjective Date of Service: 04/09/20 Chief Complaint: Hypertensive emergency Subjective: No new changes, Other (Complains of headache) Review of Systems 10-point ROS is otherwise unremarkable Physical Examination - Vital Signs Temperature: 97.7 F Blood Pressure: 178/74 Pulse: 87 Respirations: 20 Pulse Ox (%): 93 - Physical Exam General: Alert, In no apparent distress HEENT: Atraumatic, Normocephalic Neck: Supple Respiratory: Clear to auscultation bilaterally Cardiovascular: Normal pulses, Regular rate/rhythm, Normal S1 S2 Capillary refill: <2 Seconds Gastrointestinal: Soft and benign, W/out hepatosplenomegaly Musculoskeletal: No clubbing, No swelling Integumentary: No rashes Neurological: Normal speech, Normal strength at 5/5 x4 extr Lymphatics: No axilla or inguinal lymphadenopathy - Studies Laboratory Data (last 24 hrs) 04/08/20 16:55: PT 12.2, INR 1.03 04/08/20 16:55: WBC 15.1 H, Hgb 13.4, Hct 40.4, Plt Count 300 04/08/20 16:55: Sodium 140, Potassium 3.3 L, BUN 7, Creatinine 0.63, Glucose 100, Magnesium 1.8, Total Bilirubin 0.3, AST 10 L, ALT 18, Alkaline Phosphatase 113 Assessment & Plan Physician Review Additional Text: Hypertensive emergency complicated by tachycardia and mild labored breathing: Noncompliance with medication: Hyperlipidemia: Plan: Hypertensive emergency complicated by tachycardia and mild labored breathing: Monitor under telemetry Trend cardiac enzymes Antihypertensives titrated hydralazine 10 mg q.4 hr p.r.n. for systolic blood pressure greater than 160 and a diastolic blood pressure greater than 100. Monitor blood pressure. Noncompliance with medication: Counseled about taking blood pressure medications on a regular basis and seeing her PCP on a regular basis. Verbalize understanding. Hyperlipidemia: Continue home medication Discharge Plan: Home Plan to discharge in: 24 Hours Time Spent Managing Pts Care (In Minutes): 42
[2020-04-09 10:25] VITALS: O2SAT 93
[2020-04-09] MEDS: ACETAMINOPHEN 325 MG TABLET PO PRN (11:34)
[2020-04-09] MEDS: AMLODIPINE 2.5 MG TAB PO SCH (12:50)
[2020-04-09] MEDS: carvediloL 3.125 MG TAB PO SCH (12:50)
[2020-04-09] MEDS: HYDRALAZINE HCL 20 MG/ML VIAL IV PRN (17:08)
[2020-04-10] MEDS ORDERED: ONDANSETRON 4 MG/2 ML VIAL IV PRN (03:45)
[2020-04-10] MEDS: carvediloL 3.125 MG TAB PO SCH (05:07)
[2020-04-10] MEDS: ACETAMINOPHEN 325 MG TABLET PO PRN (06:02)
[2020-04-10] MEDS: BENZONATATE 100 MG CAP PO PRN (06:02)
[2020-04-10] MEDS: hydroCHLOROthiazide 25 MG TAB PO SCH (09:17)
[2020-04-10] MEDS: AMLODIPINE 2.5 MG TAB PO SCH (09:19)
[2020-04-10] MEDS: lisinopriL 20 MG TAB PO SCH (09:19)
[2020-04-10] MEDS: ENOXAPARIN 40 MG/0.4 ML SQ SCH (09:19)
--- NOTE | 2020-04-10 10:48 | P.DS ---
Admission Date: 04/08/20 Discharge Date: 04/10/20 Disposition: ROUTINE DISCHARGE Discharge Condition: GOOD Reason for Admission: Hypertensive emergency Brief History of Present Illness: 59-year-old female with past medical history of essential hypertension and hyperlipidemia and morbid obesity presents to the emergency room complaining of shortness of breath, high blood pressure and headache. Patient states that she has a [employer] employee. That she ran out of her medications and has not gone to see your PCP to get her prescription renewed. On arrival to the emergency room patient was found to have a blood pressure of 199/99. She had some labored breathing and was tachycardic with a heart rate of 119. Patient was given medication in the ER which brought her blood pressure down to 163/64 they continue tachycardic at 117 despite having oxygen saturations of 95% on room air. Patient is still having mild labored breathing. Patient states she takes lisinopril but does not know her dose. Patient was given lisinopril 20 mg in the ED which improved her blood pressure. Patient be placed in observation and further evaluated. Hospital Course: Hypertensive emergency complicated by tachycardia and mild labored breathing: Noncompliance with medication: Hyperlipidemia: Course The patient was admitted and was monitored closely under telemetry. Cardiac enzymes trended.Antihypertensives titrated Monitored blood pressure closely and added on antihypertensives For Noncompliance with medication: Counseled about taking blood pressure medications on a regular basis and seeing her PCP on a regular basis. Verbalized understanding. Patient wanted go home and is being discharged home today in a stable condition with advice to follow up with PCP in 1 week and also had to have a BP log at home Vital Signs/Physical Exam: Temp Pulse Resp BP Pulse Ox 97.3 F 72 17 124/58 L 100 04/10/20 08:00 04/10/20 09:19 04/10/20 08:00 04/10/20 09:19 04/10/20 08:00 General: Alert, In no apparent distress HEENT: Atraumatic, Normocephalic Neck: Supple Respiratory: Clear to auscultation bilaterally Cardiovascular: Regular rate/rhythm, Normal S1 S2 Capillary refill: <2 Seconds Gastrointestinal: Soft and benign, W/out hepatosplenomegaly Musculoskeletal: No clubbing, No swelling Integumentary: No rashes Neurological: Normal speech, Normal strength at 5/5 x4 extr Lymphatics: No axilla or inguinal lymphadenopathy Laboratory Data at Discharge: WBC 10.9 K/uL (4.3-10.9) D 04/09/20 06:16 Hgb 12.6 g/dL (12.0-15.0) 04/09/20 06:16 Hct 37.1 % (36.0-45.0) 04/09/20 06:16 Plt Count 267 K/uL (152-406) 04/09/20 06:16 PT 12.2 SECONDS (9.5-12.5) 04/08/20 16:55 INR 1.03 04/08/20 16:55 Sodium 142 mmol/L (136-145) 04/09/20 06:16 Potassium 4.0 mmol/L (3.5-5.1) 04/09/20 15:03 BUN 7 mg/dL (7-18) 04/09/20 06:16 Creatinine 0.56 mg/dL (0.55-1.3) 04/09/20 06:16 Glucose 100 mg/dL (74-106) 04/09/20 06:16 Magnesium 1.9 mg/dL (1.8-2.4) 04/09/20 06:16 Total Bilirubin 0.3 mg/dL (0.2-1.0) 04/08/20 16:55 AST 10 U/L (15-37) L 04/08/20 16:55 ALT 18 U/L (12-78) 04/08/20 16:55 Alkaline Phosphatase 113 U/L (45-117) 04/08/20 16:55 Home Medications: Lisinopril/Hydrochlorothiazide [Zestoretic 20-12.5 mg Tablet] 1 each PO DAILY 12/17/14 Simvastatin [Zocor] 5 mg PO BEDTIME 12/17/14 Amlodipine [Norvasc*] 2.5 mg PO DAILY #30 tab 04/10/20 Benzonatate [Tessalon Perle*] 100 mg PO TID PRN #15 cap 04/10/20 carvediloL [Coreg*] 3.125 mg PO BID 6AM 6PM #60 tab 04/10/20 New Medications: carvediloL [Coreg*] 3.125 mg PO BID 6AM 6PM #60 tab Amlodipine [Norvasc*] 2.5 mg PO DAILY #30 tab Benzonatate [Tessalon Perle*] 100 mg PO TID PRN #15 cap PRN Reason: Cough Diet: AHA Activity: Ad amber Time spent managing pt's care (in minutes): 42
[2020-04-10 13:13] VITALS: BP 143/66; TEMP 96.9
== END 2020-04-10 13:24 | disposition home or self-care (01) ==
LOC: ER 15:23 → ERHOLD 19:30 → 2ND 21:32
PROVIDERS: ADMIT Emergency Medicine; ATTEND Family Medicine
DX: I16.1 Hypertensive emergency (principal); R00.1 Bradycardia, unspecified; R06.4 Hyperventilation; I10 Essential (primary) hypertension; E78.5 Hyperlipidemia, unspecified; Z91.14 Patient's other noncompliance with medication regimen; Z20.828 Contact with and (suspected) exposure to other viral communicable diseases; Z79.899 Other long term (current) drug therapy; E66.01 Morbid (severe) obesity due to excess calories; Z68.37 Body mass index [BMI] 37.0-37.9, adult
CPT/HCPCS: 93005; 87088; 85025 ×2; 87086; 80048 ×2; 36415; 83735 ×2; 84132; 85610; 80076; 84484; 82728; 84145; 83880; 86140; 71275; 71045; 96360; 96372; 99285; U0003; Q9967; J0360 ×2; J1650 ×3; J7030; J2405; G0378 ×4; 81003; 81015

== ENCOUNTER 2021-02-26 16:11 | Emergency (ER) | payer OTHER ==
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
[2021-02-26 17:39] VITALS: BP 173/88; TEMP 97.5; O2SAT 96
== END 2021-02-26 17:34 | disposition home or self-care (01) ==
LOC: ER 16:11
DX: S29.012A Strain of muscle and tendon of back wall of thorax, initial encounter (principal); V49.40XA Driver injured in collision with unspecified motor vehicles in traffic accident, initial encounter; I10 Essential (primary) hypertension
CPT/HCPCS: 70450; 72125; 99283

== ENCOUNTER 2023-06-12 02:03 | Observation (INO) | payer OTHER ==
--- OUTSIDE RECORDS SUMMARY | 2023-06-12 02:06 | XMS REPORT | Continuity of Care Document ---
:1960 Author Organization [facility] t Address [address] [place] [address] [place] [address] Care Team Providers Name Role Phone Brain Middleton Primary Care Physician VICENTE GILL Attending Clinician Unavailable MD YUSEF Attending Clinician Unavailable [id number] Attending Clinician Unavailable Payers Payer Name Policy Type Policy Number Effective Date Expiration Date S beth [employer] MP CVS 9 [id number] 2022 00:00:00 SILVER: HMO ROLLED [employer] 94 ON STAND Problems Condition Condition Condition Status Onset Resolution Last Treating Co mments Source Name Details Category Date Date Treatment Clinician Date Primary Primary Disease Active Gabbi hypertensi hypertensi 09-11 Se ybold on on 00:00: - 00 Externa l Mixed Mixed Disease Active Gabbi hyperlipid hyperlipid 09-11 Se ybold emia emia 00:00: - 00 Externa l No known No known Disease Kelse y active active Seybold problems problems - Externa l Allergies, Adverse Reactions, Alerts Allergy Allergy Status Severity Reaction(s) Onset Inactive Treating Comm ents Source Name Type Date Date Clinician NO KNOWN Allergy Active [facility] Social History Social Habit Start Date Stop Date Quantity Comments Source History of tobacco Smoker Gabbi Mendoza - use External Cigarettes smoked 2022-09-11 2022-09-11 Gabbi Mendoza - current (pack per 00:00:00 00:00:00 Externa l day) - Reported Alcohol intake 2014-11-20 2014-11-20 Current MAGDY Fernandez es 00:00:00 00:00:00 non-drinker of Medical Ce nter alcohol (finding) Sex Ass[birth year] At [birth year] MAGDY Alegre [facility]00 [facility] Smoking Status Start Date Stop Date Source Ex-smoker 2022-09-11 00:00:00 2022-09-11 00:00:00 Gabbi Rincon eybold - External Never smoked tobacco Gabbi Dexter old - External Medications Ordered Filled Start Stop Current Ordering Indication Dosage Frequency Signature Comments Components Source Medication Medication Date Date Medication? Clinician (SIG) Name Name hydroCHLORO Yes [id number] 12.5mg Take 1 Gabbi thiazide 09-11 capsule Seybold 12.5 MG 00:00: (12.5 mg - oral 00 total) by Externa Capsule mouth l daily Cyclobenzap Yes [id number] 5mg Q.[id number] Take 1 Gabbi rine HCl 5 09-11 [id number] tablet (5 Seybold MG oral 00:00: 3D mg total) - Tablet 00 by mouth 3 Externa times l daily as needed for muscle spasms Triamcinolo 2022- No [id number] 40mg K pradeepy ne 09-05 Seybold Acetonide 22:00: 22:00 - (KENALOG) 00 :00 Externa 40 mg/mL l CELESTONE 2022- No [id number] 6mg Jean Claude y 09-05 Seybold 22:00: 22:00 - 00 :00 Externa l CELESTONE 2022- No [id number] 6mg 6 mg, Ke lsey 09-05 intramuscu Seybold 22:00: 22:00 lar, ONCE, - 00 :00 On Sat Externa 09/05/22 at l 1600, For 1 dose Triamcinolo 2022- No [id number] 1mL 40 mg (1 Gabbi ne 09-05 mL), Seybold Acetonide 22:00: 22:00 intramuscu - (KENALOG) 00 :00 lar, ONCE, Exte rna 40 mg/mL On Wed l 09/05/22 at 1600, For 1 dose LISINOPRIL- 2022-0 2022- No 1{tbl} Take 1 K elsey HCTZ 1-25 01-25 tablet by Seybold 20-12.5 MG 15:51: 00:00 mouth - oral Tablet 08 :00 daily Externa l Simvastatin 3-0 2022- No 1{tbl} Take 1 K elsey 5 MG oral 1-25 01-25 tablet by Seyb old Tablet 15:51: 00:00 mouth - 08 :00 every day Externa at 5:00 PM l Amlodipine 2022-0 Yes [id number] 2.5mg Take 1 Gabbi Besylate 1-25 tablet Seybold 2.5 MG oral 00:00: (2.5 mg - Tablet 00 total) by Externa mouth l daily LISINOPRIL- 2022-0 Yes [id number] 1{tbl} Take 1 Gabbi HCTZ 1-25 tablet by Seybold 20-12.5 MG 00:00: mouth - oral Tablet 00 daily Externa l Simvastatin 3-0 Yes [id number] 5mg Take 1 Gabbi 5 MG oral 1-25 tablet (5 Seybo ld Tablet 00:00: mg total) - 00 by mouth Externa every day l at 5:00 PM Carvedilol 3-0 Yes [id number] 3.125mg Take 1 Gabbi 3.125 MG 1-25 tablet Seybold oral Tablet 00:00: (3.125 mg - 00 total) by Externa mouth in l the morning and 1 tablet (3.125 mg total) in the evening. Take with meals. Amlodipine 2022-0 Yes [id number] 2.5mg Take 1 Gabbi Besylate 1-25 tablet Seybold 2.5 MG oral 00:00: (2.5 mg - Tablet 00 total) by Externa mouth l daily LISINOPRIL- 3-0 Yes [id number] 1{tbl} Take 1 Gabbi HCTZ 1-25 tablet by Seybold 20-12.5 MG 00:00: mouth - oral Tablet 00 daily Externa l Simvastatin 3-0 Yes [id number] 5mg Take 1 Gabbi 5 MG oral 1-25 tablet (5 Seybo ld Tablet 00:00: mg total) - 00 by mouth Externa every day l at 5:00 PM Carvedilol Yes [id number] 3.125mg Take 1 Gabbi 3.125 MG 1-25 tablet Seybold oral Tablet 00:00: (3.125 mg - 00 total) by Externa mouth in l the morning and 1 tablet (3.125 mg total) in the evening. Take with meals. Carvedilol 2022- No 1{tbl} Take 1 Ke lsey 3.125 MG 08-24 tablet by Seybo ld oral Tablet 00:00: 00:00 mouth in - 00 :00 the Externa morning l and 1 tablet in the evening. Take with meals. Amlodipine 2022- No 1{tbl} Take 1 Ke lsey Besylate 08-24 tablet by Seybo ld 2.5 MG oral 00:00: 00:00 mouth - Tablet 00 :00 daily Externa l Vital Signs Vital Name Observation Time Observation Value Comments Source Systolic blood 2022-09-11 21:50:00 144 mm[Hg] Gabbi Seybold - pressure External Diastolic blood 2022-09-11 21:50:00 86 mm[Hg] Deonte fitzpatrick Seybold - pressure External Heart rate 2022-09-11 21:50:00 88 /min Gabbi jacintobold - External Body temperature 2022-09-11 21:50:00 36.28 Desiree Vivian jacinto Seybold - External Respiratory rate 2022-09-11 21:50:00 14 /min Vivian ey Seybold - External Body height 2022-09-11 21:50:00 165.1 cm Gabbi Rincon eybold - External Body weight 2022-09-11 21:50:00 112.038 kg Gabbi Mckenzie eybold - External BMI 2022-09-11 21:50:00 41.10 kg/m2 Gabbi S eybold - External Systolic blood 2022-09-05 21:07:00 134 mm[Hg] Gabbi Seybold - pressure External Diastolic blood 2022-09-05 21:07:00 78 mm[Hg] Deonte fitzpatrick Seybold - pressure External Heart rate 2022-09-05 21:07:00 99 /min Gabbi Rincon eybold - External Body temperature 2022-09-05 21:07:00 36.17 Desiree Vivian Mendoza - External Respiratory rate 2022-09-05 21:07:00 15 /min Vivian Mendoza - External Body height 2022-09-05 21:07:00 165.1 cm Gabbi johnson - External Body weight 2022-09-05 21:07:00 112.492 kg Gabbi jacintobogilberto - External BMI 2022-09-05 21:07:00 41.27 kg/m2 Gabbi jacintobogilberto - External Procedures This patient has no known procedures. Encounters Start End Encounter Admission Attending Care Care Encounter Source Date/Time Date/Time Type Type Clinicians Facility Department ID 2023-04-08 2023-04-08 Outpatient GABBI GILL [id number] Gabbi 00:00:00 00:00:00 VICENTE Seybol d 2023-04-01 2023-04-01 Outpatient GABBI GILL [id number] Gabbi 00:00:00 00:00:00 VICENTE Seybol d 2023-03-20 2023-03-20 Outpatient GABBI GILL [id number] Gabbi 00:00:00 00:00:00 VICENTE Seybol d 2023-03-02 2023-03-02 Outpatient GABBI GILL [id number] Gabbi 00:00:00 00:00:00 VICENTE Seybol d 2023-02-20 2023-02-20 Outpatient GABBI GILL [id number] Gabbi 00:00:00 00:00:00 VICENTE Seybol d 2023-01-15 2023-01-15 Outpatient GABBI GILL [id number] Gabbi 00:00:00 00:00:00 VICENTE Seybol d 2023-01-09 2023-01-09 Outpatient GABBI GILL [id number] Gabbi 00:00:00 00:00:00 VICENTE Seybol d 2022-12-07 2022-12-07 Outpatient GABBI GILL [id number] Gabbi 00:00:00 00:00:00 VICENTE Seybol d 2022-12-06 2022-12-06 Outpatient GABBI GILL [id number] Gabbi 00:00:00 00:00:00 VICENTE Seybol d 2022-09-19 2022-09-19 Outpatient GABBI GILL [id number] Gabbi 00:00:00 00:00:00 VICENTE Seybol d 2022-09-17 2022-09-17 Outpatient MYKELSEYONL GABBI ESPINAL [id number] Gabbi 00:00:00 00:00:00 MD PHANI Seybol d 2022-09-13 2022-09-13 Outpatient GABBI GILL [id number] Gabbi 00:00:00 00:00:00 VICENTE Seybol d 2022-09-11 2022-09-11 Outpatient LAB90 GABBI ESPINAL [id number] Gabbi 16:45:00 16:45:00 Seybol d 2022-09-11 2022-09-11 Outpatient GABBI GILL [id number] Gabbi 16:00:00 16:00:00 VICENTE Seybol d 2022-09-05 2022-09-05 Outpatient GABBI GILL [id number] Gabbi 15:00:00 15:00:00 VICENTE Seybol d 2022-09-04 2022-09-04 Outpatient GABBI GILL [id number] Gabbi 14:00:00 14:00:00 VICENTE Seybol d Results This patient has no known results.
[2023-06-12] MEDS ORDERED: ONDANSETRON 4 MG/2 ML VIAL ONE (03:17)
[2023-06-12] MEDS ORDERED: IBUPROFEN 400 MG TAB ONE (03:35)
[2023-06-12] MEDS ORDERED: NA CHLORIDE 0.9% 500 ML ONE (03:35)
[2023-06-12] MEDS ORDERED: NA CHLORIDE 0.9% 1,000 ML ONE (03:35)
[2023-06-12 03:36] LABS: Absolute Lymphocytes (CBC) 1.5 K/uL (0.7-4.9); Hematocrit 39.9 % (36.0-45.0); Lymphocytes % 13.8 % (15.3-44.8); MCV 91.6 fL (80-100); MPV 9.6 fL (7.6-11.3); Platelets 264 thou/uL (152-406); RBC Red Blood Cell Count 4.35 M/uL (3.86-4.86)
[2023-06-12 03:44] LABS: Albumin 3.3 g/dL (3.4-5.0); Bilirubin Total 0.2 mg/dL (0.2-1.0); Potassium 3.4 mEq/L (3.5-5.1); Protein, Total 7.3 g/dL (6.4-8.2)
[2023-06-12 03:57] LABS: Specific Gravity 1.025 (1.005-1.030); Urine Bacteria None Seen /HPF (<20); Urine Bilirubin NEGATIVE (Negative); Urine Blood Negative (Negative); Urine Clarity Clear (Clear); Urine Color Light-Yellow (Yellow); Urine Glucose NEGATIVE (Negative); Urine Mucus Slight /HPF (None Seen); Urine Protein NEGATIVE (Negative); Urine RBC None Seen /HPF (None Seen); Urine Urobilinogen Normal (Normal)
[2023-06-12 03:58] LABS: C-Reactive Protein 6.12 mg/L (<3.00); Troponin High Sensitivity 5.7 pg/mL (<58.9)
[2023-06-12 06:01] LABS: Troponin High Sensitivity 6.3 pg/mL (<58.9)
--- NOTE | 2023-06-12 06:08 | ER ---
Nurse's Notes [facility] Name: Gina Gomez Age: 62 yrs Sex: Female : 1960 Arrival Date: 06/12/2023 Time: 02:03 Bed 5 Private MD: Diagnosis: Angina pectoris, unspecified;Acute generalized weakness, dizziness, headache, nausea with vomiting Presentation: 06/12 02:29 Chief complaint: Patient states: LIGHTHEADED, DIZZINESS, PRESSURE ON HER CHEST. WENT jj7 AND LAID DOWN STATES SHE VOMITED X4. FEELS LIKE THE ROOM IS SPINNING. STARTED TONIGHT. Coronavirus screen: At this time, the client does not indicate any symptoms associated with coronavirus-19. Ebola Screen: No symptoms or risks identified at this time. Initial Sepsis Screen: Does the patient meet any 2 criteria? No. Patient's initial sepsis screen is negative. Does the patient have a suspected source of infection? No. Patient's initial sepsis screen is negative. Risk Assessment: Do you want to hurt yourself or someone else? Patient reports no desire to harm self or others. Onset of symptoms was June 11, 2023. 02:29 Method Of Arrival: Ambulatory 7 02:29 Acuity: FREDERIC 3 jj7 Triage Assessment: 02:37 General: Appears in no apparent distress. uncomfortable, Behavior is calm, cooperative, jj7 appropriate for age. Pain: Complains of pain in right eye and left eye. Neuro: Reports blurred vision dizziness, headache frontal area. GI: No deficits noted. Historical: - Allergies: 02:37 No Known Allergies; jj7 - PMHx: 02:37 Hyperlipidemia; Hypertension; jj7 - PSHx: 02:37 Cholecystectomy; hysterectomy; jj7 - Immunization history:: Adult Immunizations up to date. - Social history:: Smoking status: Patient denies any tobacco usage or history of. Patient/guardian denies using alcohol, street drugs. - Family history:: not pertinent. Screenin:38 [facility] ED Fall Risk Assessment (Adult) History of falling in the last 3 months, jj7 including since admission No falls in past 3 months (0 pts) Confusion or Disorientation No (0 pts) Intoxicated or Sedated No (0 pts) Impaired Gait No (0 pts) Mobility Assist Device Used No (0 pt) Altered Elimination No (0 pt) Score/Fall Risk Level 0 - 2 = Low Risk Oriented to surroundings, Maintained a safe environment. Abuse screen: Denies threats or abuse. Nutritional screening: No deficits noted. Tuberculosis screening: No symptoms or risk factors identified. Assessment: 02:38 Reassessment: SEE TRIAGE ASSESSMENT. jj7 02:38 GI: No deficits noted. Abdomen is non-distended. jj7 03:05 General: Appears in no apparent distress. comfortable, well groomed, well developed, pf1 Behavior is calm, cooperative, appropriate for age, quiet. Pain: Complains of pain in head. Neuro: Level of Consciousness is awake, alert, obeys commands, Oriented to person, place, time, situation, Reports dizziness, headache. Cardiovascular: Reports vomiting, chest pressure Capillary refill < 3 seconds Patient's skin is warm and dry. Respiratory: No deficits noted. Airway is patent Respiratory effort is even, unlabored, Respiratory pattern is regular, symmetrical. GI: Abdomen is round non-distended, Reports vomiting. : No deficits noted. No signs and/or symptoms were reported regarding the genitourinary system. EENT: Reports blurred vision. Derm: No deficits noted. No signs and/or symptoms reported regarding the dermatologic system. 04:00 Reassessment: Patient appears in no apparent distress at this time. Patient is alert, pf1 oriented x 3, equal unlabored respirations, skin warm/dry/pink. Patient states feeling better. Patient states symptoms have improved. 05:00 Reassessment: Patient appears in no apparent distress at this time. Patient and/or pf1 family updated on plan of care and expected duration. Pain level reassessed. Patient is alert, oriented x 3, equal unlabored respirations, skin warm/dry/pink. Patient states feeling better. Patient states symptoms have improved. 06:00 Reassessment: Patient appears in no apparent distress at this time. Patient and/or pf1 family updated on plan of care and expected duration. Pain level reassessed. Patient is alert, oriented x 3, equal unlabored respirations, skin warm/dry/pink. Patient states feeling better. Patient states symptoms have improved. 07:45 Reassessment: Patient appears in no apparent distress at this time. Patient and/or ph family updated on plan of care and expected duration. Pain level reassessed. Patient is alert, oriented x 3, equal unlabored respirations, skin warm/dry/pink. Patient states feeling better. Patient states symptoms have improved. Vital Signs: 02:29 BP 152 / 86; Pulse 87; Resp 17; Temp 97.2; Pulse Ox 96% ; Weight 104.33 kg; Height 5 jj7 ft. 6 in. ; Pain 2/10; 03:10 BP 148 / 73; Pulse 84; Resp 17 S; Pulse Ox 95% on R/A; ha1 04:00 BP 127 / 67; Pulse 80; Resp 16; Pulse Ox 94% on R/A; pf1 05:00 BP 127 / 72; Pulse 73; Resp 18; Pulse Ox 100% ; Pain 2/10; pf1 06:00 BP 122 / 85; Pulse 73; Resp 16; Pulse Ox 98% on R/A; pf1 07:00 BP 118 / 78; Pulse 69; Resp 18; Pulse Ox 96% on R/A; ph 02:29 Body Mass Index 37.12 (104.33 kg, 167.64 cm) jj7 02:29 Pain Scale: Adult jj7 05:00 Pain Scale: Adult pf1 Maranda Coma Score: 03:19 Eye Response: spontaneous(4). Motor Response: obeys commands(6). Verbal Response: sp4 oriented(5). Total: 15. NIH Stroke Scale Scores: 03:19 NIHSS Score: 0 sp4 ED Course: 02:05 Patient arrived in ED. jj6 02:36 Triage completed. jj7 02:37 Arm band placed on left wrist. jj7 02:53 Marco Bahena MD is Attending Physician. sp4 03:05 No provider procedures requiring assistance completed. Inserted saline lock: 22 gauge pf1 in left antecubital area, using aseptic technique. Blood collected. 03:11 CBC with Diff Sent. pf1 03:11 CMP Sent. pf1 03:11 Lipase Sent. pf1 03:11 COVID-19 SARS RT PCR Sent. pf1 03:34 Influenza Screen (a \T\ B) Sent. pf1 03:51 CT Head Brain wo Cont In Process Unspecified. EDMS 05:33 Troponin High Sensitivity Sent. pf1 06:06 Davon Hale is Hospitalizing Provider. sp4 06:07 Chest Single View XRAY In Process Unspecified. EDMS 06:45 Hospitalizing Provider role handed off by Davon Hale sp4 06:45 Yeny Araiza MD is Hospitalizing Provider. sp4 07:00 Patient has correct armband on for positive identification. Placed in gown. Bed in low ph position. Call light in reach. Side rails up X 1. Client placed on continuous cardiac and pulse oximetry monitoring. NIBP monitoring applied. 07:22 Kim Poole RN is Primary Nurse. ph 07:45 Patient admitted, IV remains in place. ph Administered Medications: 03:11 Drug: Ondansetron IVP 4 mg IVP once; over 2 minutes Route: IVP; Site: left antecubital; pf1 03:34 Follow up: Response: No adverse reaction; Marked relief of symptoms pf1 03:55 Drug: NS 0.9% IV 1000 ml IV at 125 ml/hr continuous Route: IV; Rate: 125 ml/hr; Site: pf1 left antecubital; 04:06 Follow up: Response: No adverse reaction pf1 05:00 Follow up: Response: No adverse reaction; Marked relief of symptoms pf1 03:55 Drug: NS 0.9% IV 500 ml IV at bolus once Route: IV; Rate: bolus; Site: left antecubital;pf1 04:06 Follow up: Response: No adverse reaction pf1 04:40 Follow up: Response: No adverse reaction; Marked relief of symptoms; IV Status: pf1 Completed infusion; IV Intake: 500ml 03:55 Drug: Ibuprofen PO 400 mg PO once Route: PO; pf1 04:50 Follow up: Response: No adverse reaction; Marked relief of symptoms; Pain is decreased pf1 Medication: 02:38 VIS not applicable for this client. jj7 Intake: 04:40 IV: 500ml; Total: 500ml. pf1 Outcome: 06:07 Decision to Hospitalize by Provider. sp4 07:45 Admitted to ER Hold. Please see [facility] for further documentation. ph 07:45 Condition: good 07:45 Instructed on the need for admit, 20:26 Patient left the ED. cm10 NIH Stroke Scale - NIH Stroke Score Date: 06/12/2023 Time: 03:19 Total Score = 0 10. Dysarthria (speech clarity - read or repeat words) - 0(Normal) 11. Extinction and Inattention (visual/tactile/auditory/spatial/personal) - 0(No abnormality) 1a. Level of Consciousness (LOC) - 0(Alert) 1b. Level of Consciousness (LOC) (Month \T\ Age) - 0(Both) 1c. LOC Commands (Open \T\ Closes Eyes/Real Estate Asset Manager) - 0(Both) 2. Best Gaze (Lateral Gaze Paresis) - 0(Normal) 3. Visual Field Loss - 0(No visual loss) 4. Facial Palsy - 0(Normal) 5a. Left Arm: Motor (10-second hold) - 0(No drift) 5b. Right Arm: Motor (10-second hold) - 0(No drift) 6a. Left Leg: Motor (5-second hold - always test supine) - 0(No drift) 6b. Right Leg: Motor (5-second hold - always test supine) - 0(No drift) 7. Limb Ataxia (finger/nose \T\ heel/haq - test with eyes open) - 0(Absent) 8. Sensory Loss (pinprick arms/legs/face) - 0(Normal) 9. Best Language: Aphasia (description/naming/reading) - 0(No aphasia) Initials: sp4 Signatures: Dispatcher [employer] EDMN Kim Poole RN RN ph Jeffries, Jennifer jj6 Heather Estevez RN RN ha1 Areli Morse RN RN jj7 Leeanna Styles RN RN pf1 Marco Bahena MD MD sp4 Barbara Martinez RN RN cm10 Corrections: (The following items were deleted from the chart) 03:45 03:31 Troponin High Sensitivity+C.LAB.BRZ drawn and sent. ha1 EDMS 03:45 03:31 C-REACTIVE PROTEIN+C.LAB.BRZ drawn and sent. ha1 EDMS 03:48 03:31 Influenza Screen (A \T\ B)+BA.LAB.BRZ drawn and sent. ha1 EDMS 03:48 03:40 Urinalysis W/Microscopic+U.LAB.BRZ drawn and sent. pf1 EDMS 06:31 06:00 Reassessment: Patient appears in no apparent distress at this time. pf1 Patient and/or family updated on plan of care and expected duration. Pain level reassessed. Patient is alert/active/playful, equal unlabored respirations, skin warm/dry/pink. Patient states feeling better. Patient states symptoms have improved. pf1
--- NOTE | 2023-06-12 06:08 | EDPHYS ---
Physician Documentation [facility] Name: Gina Gomez Age: 62 yrs Sex: Female : 1960 Arrival Date: 06/12/2023 Time: 02:03 Bed 5 Private MD: ED Physician Marco Bahena HPI: 06/12 03:04 This 62 yrs old Female presents to ER via Ambulatory with complaints of sp4 Nausea/Vomiting, Dizziness. 03:04 PMH - Allergies: No Known Allergies; PMHx: Hyperlipidemia; Hypertension PSHx: sp4 Cholecystectomy; hysterectomy; . 03:19 63-year-old female presents with acute onset of headache dizziness blurry vision sp4 vomiting and feeling unwell overall associated with chest tightness starting 2 days ago. Historical: - Allergies: 02:37 No Known Allergies; jj7 - PMHx: 02:37 Hyperlipidemia; Hypertension; jj7 - PSHx: 02:37 Cholecystectomy; hysterectomy; jj7 - Immunization history:: Adult Immunizations up to date. - Social history:: Smoking status: Patient denies any tobacco usage or history of. Patient/guardian denies using alcohol, street drugs. - Family history:: not pertinent. ROS: 03:19 Constitutional: Negative for fever, chills, and weight loss, positive dizziness sp4 positive headache positive blurry vision positive vomiting positive chest tightness 03:19 All other systems are negative, Exam: 03:19 Constitutional: This is a well developed, well nourished patient who is awake, alert, sp4 and in no acute distress. Head/Face: Normocephalic, atraumatic. Eyes: Pupils equal round and reactive to light, extra-ocular motions intact. Lids and lashes normal. Conjunctiva and sclera are not injected. Cornea within normal limits. Periorbital areas with no swelling, redness, or edema. ENT: Nares patent. No nasal discharge, no septal abnormalities noted. Tympanic membranes are normal and external auditory canals are clear. Oropharynx with no redness, swelling, or masses, exudates, or evidence of obstruction, uvula midline. Mucous membranes moist. Neck: Trachea midline, no thyromegaly or masses palpated, and no cervical lymphadenopathy. Supple, full range of motion without nuchal rigidity, or vertebral point tenderness. Chest/axilla: Normal chest wall appearance and motion. Nontender with no deformity. No lesions are appreciated. Cardiovascular: Regular rate and rhythm with a normal S1 and S2. No gallops, murmurs, or rubs. Normal PMI, no JVD. No pulse deficits. Respiratory: Lungs have equal breath sounds bilaterally, clear to auscultation and percussion. No rales, rhonchi or wheezes noted. No increased work of breathing, no retractions or nasal flaring. Abdomen/GI: Soft, non-tender, with normal bowel sounds. No distension or tympany. No guarding or rebound. No evidence of tenderness throughout. Back: No spinal tenderness. No costovertebral tenderness. Skin: Warm, dry with normal turgor. Normal color with no rashes, no lesions, and no evidence of cellulitis. MS/ Extremity: Pulses equal, no cyanosis. Neurovascular intact. Full, normal range of motion. Neuro: Awake and alert, GCS 15, oriented to person, place, time, and situation. Cranial nerves II-XII grossly intact. Motor strength 5/5 in all extremities. Sensory grossly intact. Psych: Awake, alert, with orientation to person, place and time. Behavior, mood, and affect are within normal limits 05:21 ECG was reviewed by the Attending Physician. Normal sinus rhythm with a rate of 84, 0 sp4 3:27 AM, normal sinus rhythm with left axis deviation Vital Signs: 02:29 BP 152 / 86; Pulse 87; Resp 17; Temp 97.2; Pulse Ox 96% ; Weight 104.33 kg; Height 5 jj7 ft. 6 in. ; Pain 2/10; 03:10 BP 148 / 73; Pulse 84; Resp 17 S; Pulse Ox 95% on R/A; ha1 04:00 BP 127 / 67; Pulse 80; Resp 16; Pulse Ox 94% on R/A; pf1 05:00 BP 127 / 72; Pulse 73; Resp 18; Pulse Ox 100% ; Pain 2/10; pf1 06:00 BP 122 / 85; Pulse 73; Resp 16; Pulse Ox 98% on R/A; pf1 07:00 BP 118 / 78; Pulse 69; Resp 18; Pulse Ox 96% on R/A; ph 02:29 Body Mass Index 37.12 (104.33 kg, 167.64 cm) j7 02:29 Pain Scale: Adult jj7 05:00 Pain Scale: Adult pf1 NIH Stroke Scale Scores: 03:19 NIHSS Score: 0 sp4 Maranda Coma Score: 03:19 Eye Response: spontaneous(4). Motor Response: obeys commands(6). Verbal Response: sp4 oriented(5). Total: 15. MDM: 02:55 Patient medically screened. sp4 05:55 ED course: CT head - COMPARISON: February 26, 2021. FINDINGS: Brain: Unremarkable. No sp4 hemorrhage. No significant white matter disease. No edema. Ventricles: Unremarkable. No ventriculomegaly. Bones/joints: Unremarkable. No acute skull fracture. Soft tissues: Unremarkable. Sinuses: Mucosal thickening left sphenoid sinus. Mastoid air cells: No significant mastoid fluid. IMPRESSION: No acute intracranial findings. No hemorrhage. . 06:02 Differential diagnosis: viral gastroenteritis, gastroenteritis, Acute coronary sp4 syndrome, below angina, positional hypertension. Data reviewed: vital signs, nurses notes, old medical records, lab test result(s), amylase and lipase, cardiac enzymes, CBC, electrolytes, hepatic panel, urinalysis, EKG, radiologic studies, CT scan, plain films. Consideration of Admission/Observation Patient was admitted/placed on observation. Escalation of care including admission/observation considered. Management of patient was discussed with the following: Hospitalist: Discussed with admission team . ED course: [place] for further investigation secondary to headache dizziness chest tightness or vomiting and blurry vision which may be a sign of significant illness such as unstable angina , the other problems in differential would be hypothyroidism, inflammatory conditions such as lupus, or some yet unexplained problem. . 06/12 02:53 Order name: CBC with Diff; Complete Time: 05:20 sp4 06/12 02:53 Order name: CMP; Complete Time: 05:20 sp4 06/12 02:53 Order name: Lipase; Complete Time: 05:20 sp4 06/12 02:54 Order name: COVID-19 SARS RT PCR; Complete Time: 05:20 sp4 06/12 03:05 Order name: Troponin High Sensitivity; Complete Time: 05:20 sp4 06/12 03:05 Order name: BNP; Complete Time: 05:20 sp4 06/12 03:05 Order name: Influenza Screen (a \T\ B); Complete Time: 05:20 sp4 06/12 03:06 Order name: Urinalysis W/Microscopic; Complete Time: 05:20 sp4 06/12 03:45 Order name: C-Reactive Protein; Complete Time: 05:20 EDCA 06/12 05:20 Order name: Troponin High Sensitivity [facility] 06/12 06:01 Order name: TSH [facility] 06/12 06:01 Order name: T4 Free [facility] 06/12 06:06 Order name: T4 Free [facility] 06/12 06:06 Order name: Thyroid Stimulating Hormone [facility] 06/12 15:07 Order name: Troponin High Sensitivity [facility] 06/12 03:16 Order name: CT Head Brain wo Cont 4 06/12 05:56 Order name: Chest Single View XRAY [facility] 06/12 03:05 Order name: EKG; Complete Time: 03:06 [facility] 06/12 02:53 Order name: IV Saline Lock; Complete Time: 03:11 4 06/12 02:53 Order name: Labs collected and sent; Complete Time: 03:11 [facility] 06/12 03:05 Order name: EKG - Nurse/Tech; Complete Time: 03:32 sp4 EC:21 Rate is 84 beats/min. Rhythm is regular, Normal Sinus Rhythm. Left axis deviation sp4 noted. OR interval is normal. QRS interval is normal. QT interval is normal. No Q waves. No ST changes noted. Clinical impression: No evidence of ischemia. Interpreted by me. Reviewed by me. Administered Medications: 03:11 Drug: Ondansetron IVP 4 mg IVP once; over 2 minutes Route: IVP; Site: left antecubital; pf1 03:34 Follow up: Response: No adverse reaction; Marked relief of symptoms pf1 03:55 Drug: NS 0.9% IV 1000 ml IV at 125 ml/hr continuous Route: IV; Rate: 125 ml/hr; Site: pf1 left antecubital; 04:06 Follow up: Response: No adverse reaction pf1 05:00 Follow up: Response: No adverse reaction; Marked relief of symptoms pf1 03:55 Drug: NS 0.9% IV 500 ml IV at bolus once Route: IV; Rate: bolus; Site: left antecubital;pf1 04:06 Follow up: Response: No adverse reaction pf1 04:40 Follow up: Response: No adverse reaction; Marked relief of symptoms; IV Status: pf1 Completed infusion; IV Intake: 500ml 03:55 Drug: Ibuprofen PO 400 mg PO once Route: PO; pf1 04:50 Follow up: Response: No adverse reaction; Marked relief of symptoms; Pain is decreased pf1 Disposition Summary: 06/12/23 06:07 Hospitalization Ordered Notes: Hospitalization Status: Observation sp4 Condition: Stable sp4 Problem: new sp4 Symptoms: have improved sp4 Bed/Room Type: Standard sp4 Provider: Yeny Araiza(06/12/23 06:45) sp4 Location: Telemetry/MedSurg (observation)(06/12/23 19:07) dw Room Assignment: 223(06/12/23 19:07) dw Diagnosis - Angina pectoris, unspecified sp4 - Acute generalized weakness, dizziness, headache, nausea with vomiting sp4 Forms: - Medication Reconciliation Form sp4 - SBAR form sp4 - Leadership Thank You Letter sp4 NIH Stroke Scale - NIH Stroke Score Date: 06/12/2023 Time: 03:19 Total Score = 0 10. Dysarthria (speech clarity - read or repeat words) - 0(Normal) 11. Extinction and Inattention (visual/tactile/auditory/spatial/personal) - 0(No abnormality) 1a. Level of Consciousness (LOC) - 0(Alert) 1b. Level of Consciousness (LOC) (Month \T\ Age) - 0(Both) 1c. LOC Commands (Open \T\ Closes Eyes/Music Specialist) - 0(Both) 2. Best Gaze (Lateral Gaze Paresis) - 0(Normal) 3. Visual Field Loss - 0(No visual loss) 4. Facial Palsy - 0(Normal) 5a. Left Arm: Motor (10-second hold) - 0(No drift) 5b. Right Arm: Motor (10-second hold) - 0(No drift) 6a. Left Leg: Motor (5-second hold - always test supine) - 0(No drift) 6b. Right Leg: Motor (5-second hold - always test supine) - 0(No drift) 7. Limb Ataxia (finger/nose \T\ heel/haq - test with eyes open) - 0(Absent) 8. Sensory Loss (pinprick arms/legs/face) - 0(Normal) 9. Best Language: Aphasia (description/naming/reading) - 0(No aphasia) Initials: sp4 Signatures: Dispatcher [employer] EDMS Tracy Lora bd Glo Bauman RN RN Areli Coyne RN RN jj7 Leeanna Styles RN RN pf1 Marco Bahena MD MD sp4 Corrections: (The following items were deleted from the chart) 03:45 03:17 Troponin High Sensitivity+C.LAB.BRZ ordered. EDMS EDMS 03:45 03:17 C-REACTIVE PROTEIN+C.LAB.BRZ ordered. EDMS EDMS 03:48 03:17 Influenza Screen (A \T\ B)+BA.LAB.BRZ ordered. EDMS EDMS 03:48 03:17 Urinalysis W/Microscopic+U.LAB.BRZ ordered. EDMS EDMS 06:45 06:07 Davon Hale sp4 sp4 07:46 06:07 Telemetry/MedSurg (observation) sp4 bd 07:46 06:07 sp4 bd 19:07 07:46 [facility] ER HOLD bd dw 19:07 07:46 ERHOLD- bd dw
--- NOTE | 2023-06-12 06:16 | P.HP ---
Certification for Inpatient Patient admitted to: Observation With expected LOS: <2 Midnights Patient will require the following post-hospital care: None Practitioner: I am a practitioner with admitting privileges, knowledge of patient current condition, hospital course, and medical plan of care. Services: Services provided to patient in accordance with Admission requirements found in Title 42 Section 412.3 of the Code of Federal Regulations Patient History Date of Service: 06/12/23 Reason for admission: chest pain History of Present Illness: 62-year-old female with a past medical history of hypertension, hyperlipidemia, presents to the emergency room with chest pain. Reports associated dizziness, nausea vomiting. Reports chest pain started 2 days ago, progressively getting worse. Reports chest pain as chest tightness, nausea vomiting worse with p.o. intake better with bowel rest. Patient is alert and oriented x4 GCS 15. NIH stroke scale 0. No reported recent infection, fever, cough, shortness of breath. Edema. Plan to admit for chest pain. Laboratory evaluation CBC WBCs within normal limits early left shift 76.1, mild hypokalemia 3.4, glucose 126, UA 75 mildly elevated leukoesterase otherwise negative. CT of the head WNL Allergies No Known Allergies Allergy (Verified 04/08/20 22:01) Home Medications: Lisinopril/Hydrochlorothiazide [Zestoretic 20-12.5 mg Tablet] 1 each PO DAILY 12/17/14 Simvastatin [Zocor] 5 mg PO BEDTIME 12/17/14 Amlodipine [Norvasc*] 2.5 mg PO DAILY #30 tab 04/10/20 Benzonatate [Tessalon Perle*] 100 mg PO TID PRN #15 cap 04/10/20 carvediloL [Coreg*] 3.125 mg PO BID 6AM 6PM #60 tab 04/10/20 - Past Medical/Surgical History Diabetic: No -: Essential hypertension -: Hyperlipidemia -: Gallbladder removal 1978 -: Hysterectomy 1984 Psychosocial/ Personal History: Lives at home - Family History Mother -: Heart disease, Hypertension Father -: Heart disease, Cancer, Other (see notes) Notes: prostate Ca - Social History Alcohol use: No CD- Drugs: No Caffeine use: Yes Review of Systems 10-point ROS is otherwise unremarkable Physical Examination - Physical Exam General: Alert, In no apparent distress, Oriented x3, Obese HEENT: Atraumatic, Normocephalic, PERRLA Neck: Supple, 2+ carotid pulse no bruit Respiratory: Clear to auscultation bilaterally, Normal air movement Cardiovascular: No edema, Normal pulses, Regular rate/rhythm Capillary refill: <2 Seconds Gastrointestinal: Normal bowel sounds, Soft and benign Musculoskeletal: No clubbing, No swelling Integumentary: No rashes, No breakdown Neurological: Normal gait, Normal speech - Studies Laboratory Data (last 24 hrs) 06/12/23 06/12/23 03:05 03:05 WBC 10.90 Hgb 13.3 Hct 39.9 Plt Count 264 Sodium 138 Potassium 3.4 L BUN 16 Creatinine 0.73 Glucose 126 H Total Bilirubin 0.2 AST 8 L ALT 16 Alkaline Phosphatase 82 Lipase 48 Microbiology Data (last 24 hrs): 06/12/23 03:30 Nasopharnyx Influenza Type A Antigen Screen - Final 06/12/23 03:30 Nasopharnyx Influenza Type B Antigen Screen - Final Assessment and Plan - Plan Assessment and plan Chest pain unspecified Dizziness History of hypertension Trend troponin, telemetry, as needed analgesics, as needed antiemetics Troponin 5.7, BNP, 89 TSH within normal limits Dizziness CT head acute abnormality Fall precautions Nausea vomiting likely due to possible viral gastroenteritis IV fluids, as needed antiemetics CBC WBCs within normal limits early left shift 76.1, UA 75 leukoesterase otherwise negative Empiric antibiotics Hypokalemia Trend electrolytes replace as needed mild hypokalemia 3.4 Hyperlipidemia Resume appropriate home medications Diet cardiac Full code DVT prophylaxis Lovenox Discharge Plan: Home Plan to discharge in: 24 Hours - Advance Directives Does patient have a Living Will: No Does patient have a Durable POA for Healthcare: No - Code Status/Comfort Care Code Status: Full Code Physician Review: Patient Assessed, Agree with Above Assessment and Plan Critical Care: No Time Spent Managing Pts Care (In Minutes): 50
[2023-06-12 06:22] LABS: Thyroid Stimulating Hormone 0.64 uIU/mL (0.358-3.740)
[2023-06-12] MEDS ORDERED: ONDANSETRON 4 MG/2 ML VIAL IV PRN (07:26)
[2023-06-12] MEDS ORDERED: MORPHINE 2 MG/ML SYR IV PRN (07:26)
[2023-06-12] MEDS: CEFTRIAXONE 1,000 MG in NA CHLORIDE 0.9% 50 ML IVPB SCH ×2 (07:26→14:52)
[2023-06-12] MEDS ORDERED: ALPRAZOLAM 0.25 MG TABLET PO PRN (07:26)
[2023-06-12] MEDS: NA CHLORIDE 0.9% 1,000 ML IV SCH ×2 (07:26→22:08)
[2023-06-12] MEDS ORDERED: NITROGLYCERIN 0.4 MG/TAB SL PRN (07:26)
[2023-06-12 08:04] VITALS: BMI 37.1
--- NOTE | 2023-06-12 08:42 | RAD REPORT ---
EXAM DESCRIPTION: XR Chest, 1 View CLINICAL HISTORY: The patient is 62 years old and is Female; CHEST PAIN TECHNIQUE: Single view of the chest. COMPARISON: No relevant prior studies available. FINDINGS: Lungs: No pulmonary vascular congestion or consolidation. Pleural space: Unremarkable. No pneumothorax. Heart: Unremarkable. No cardiomegaly. Mediastinum: Unremarkable. Bones/joints: No acute fracture visualized. Upper abdomen: No free air in the visualized upper abdomen. IMPRESSION: No acute cardiopulmonary process identified. Electronically signed by: Rula Nunez MD 06/12/2023 6:17 AM CDT Due to temporary technical issues with the PACS/Fluency reporting system, reports are being signed by the in house radiologists without review as a courtesy to insure prompt reporting. The interpreting radiologist is fully responsible for the content of the report.
[2023-06-12] MEDS: ENOXAPARIN 40 MG/0.4 ML SQ SCH (09:00)
[2023-06-12] MEDS ORDERED: ASPIRIN 325 MG TAB ONE (09:00)
[2023-06-12] MEDS ORDERED: NA CHLORIDE 0.9% 50 ML ONE (09:00)
[2023-06-12] MEDS ORDERED: ENOXAPARIN 40 MG/0.4 ML SQ ONE (09:00)
[2023-06-12] MEDS ORDERED: CEFTRIAXONE 1000 MG/VIAL ONE (09:00)
[2023-06-12] MEDS: ASPIRIN 325 MG TAB PO SCH (09:00)
--- NOTE | 2023-06-12 10:34 | RAD REPORT ---
EXAM DESCRIPTION: CT Head Without Intravenous Contrast CLINICAL HISTORY: The patient is 62 years old and is Female; DIZZINESS TECHNIQUE: Axial computed tomography images of the head/brain without intravenous contrast. Sagitt al and coronal reformatted images were created and reviewed. This CT exam was performed using one o r more of the following dose reduction techniques: automated exposure control, adjustment of the mA and/or kV according to patient size, and/or use of iterative reconstruction technique. COMPARISON: February 26, 2021. FINDINGS: Brain: Unremarkable. No hemorrhage. No significant white matter disease. No edema. Ventricles: Unremarkable. No ventriculomegaly. Bones/joints: Unremarkable. No acute skull fracture. Soft tissues: Unremarkable. Sinuses: Mucosal thickening left sphenoid sinus. Mastoid air cells: No significant mastoid fluid. IMPRESSION: No acute intracranial findings. No hemorrhage. Electronically signed by: Rula Nunez MD 06/12/2023 4:03 AM CDT Due to temporary technical issues with the PACS/Fluency reporting system, reports are being signed by the in house radiologists without review as a courtesy to insure prompt reporting. The interpreting radiologist is fully responsible for the content of the report.
[2023-06-12] MEDS: ACETAMINOPHEN 500 MG TAB PO PRN (13:39)
[2023-06-12] MEDS ORDERED: ACETAMINOPHEN 325 MG TABLET ONE (13:48)
[2023-06-12 20:41] VITALS: O2SAT 96
[2023-06-12] MEDS ORDERED: SCOPOLAMINE HYDROBROMIDE PATCH TD ONE (22:14)
[2023-06-13] MEDS: ACETAMINOPHEN 500 MG TAB PO PRN ×2 (04:40→13:06)
[2023-06-13 07:57] LABS: Absolute Lymphocytes (CBC) 2.6 K/uL (0.7-4.9); Hematocrit 37.8 % (36.0-45.0); Lymphocytes % 32.4 % (15.3-44.8); MCV 91.6 fL (80-100); MPV 9.7 fL (7.6-11.3); Platelets 235 thou/uL (152-406); RBC Red Blood Cell Count 4.13 M/uL (3.86-4.86)
[2023-06-13 08:19] LABS: Magnesium 1.6 mg/dL (1.6-2.4); Potassium 3.4 mEq/L (3.5-5.1)
[2023-06-13 08:53] VITALS: TEMP 97.9
--- NOTE | 2023-06-13 09:27 | P.DS ---
Admission Date: 06/12/23 Discharge Date: 06/13/23 Disposition: ROUTINE DISCHARGE Discharge Condition: FAIR Reason for Admission: chest pain Consultations: Follow-up with primary care after discharge, follow-up with cardiology 1 to 2 we eks after discharge Brief History of Present Illness: 62-year-old female with a past medical history of hypertension, hyperlipidemia, presents to the emergency room with chest pain. Reports associated dizziness, nausea vomiting. Reports chest pain started 2 days ago, progressively getting worse. Reports chest pain as chest tightness, nausea vomiting worse with p.o. intake better with bowel rest. Patient is alert and oriented x4 GCS 15. NIH stroke scale 0. No reported recent infection, fever, cough, shortness of breath. Edema. Plan to admit for chest pain. Laboratory evaluation CBC WBCs within normal limits early left shift 76.1, mild hypokalemia 3.4, glucose 126, UA 75 mildly elevated leukoesterase otherwise negative. CT of the head WNL - Physical Exam General: Alert, In no apparent distress, Oriented x3, Obese HEENT: Atraumatic, Normocephalic, PERRLA Neck: Supple, 2+ carotid pulse no bruit Respiratory: Clear to auscultation bilaterally, Normal air movement Cardiovascular: No edema, Normal pulses, Regular rate/rhythm Capillary refill: <2 Seconds Gastrointestinal: Normal bowel sounds, Soft and benign Musculoskeletal: No clubbing, No swelling Integumentary: No rashes, No breakdown Neurological: Normal gait, Normal speech Hospital Course: 62-year-old female with a past medical history of hypertension, hyperlipidemia, presents to the emergency room with chest pain. Serial cardiac enzymes are unremarkable, lipid panel within normal limits. Troponins normal BNP normal 89. Carotid doppler IMPRESSION: No significant atherosclerotic changes noted. No evidence of a hemodynamically significant stenosis, ECHO NSR, no Left vent hypertrophy.Plan to discharge home, follow-up with primary care 1 to 2 weeks. Cardiac enzymes are normal. Will need to follow-up with cardiology. Return to ER for worsening symptoms, Follow up with ENT For recurrent sinusitis. Vital Signs/Physical Exam: Temp Pulse Resp BP Pulse Ox 97.9 F 78 18 146/66 H 89 L 06/13/23 08:00 06/13/23 08:00 06/13/23 08:00 06/13/23 08:00 06/13/23 08:00 Laboratory Data at Discharge: WBC 8.10 thou/uL (4.3-10.9) 06/13/23 07:29 Hgb 12.7 g/dL (12.0-15.0) 06/13/23 07:29 Hct 37.8 % (36.0-45.0) 06/13/23 07:29 Plt Count 235 thou/uL (152-406) 06/13/23 07:29 Sodium 142 mEq/L (136-145) 06/13/23 07:29 Potassium 3.4 mEq/L (3.5-5.1) L 06/13/23 07:29 BUN 12 mg/dL (7-18) 06/13/23 07:29 Creatinine 0.51 mg/dL (0.55-1.02) L 06/13/23 07:29 Glucose 88 mg/dL (74-106) 06/13/23 07:29 Magnesium 1.6 mg/dL (1.6-2.4) 06/13/23 07:29 Total Bilirubin 0.2 mg/dL (0.2-1.0) 06/12/23 03:05 AST 8 U/L (15-37) L 06/12/23 03:05 ALT 16 U/L (13-56) 06/12/23 03:05 Alkaline Phosphatase 82 U/L (45-117) 06/12/23 03:05 Triglycerides 122 mg/dL (<150) 06/13/23 07:29 Cholesterol 143 mg/dL (<200) 06/13/23 07:29 HDL Cholesterol 44 mg/dL (40-60) 06/13/23 07:29 Cholesterol/HDL Ratio 3.25 06/13/23 07:29 Lipase 48 U/L (13-75) 06/12/23 03:05 Home Medications: Simvastatin [Zocor] 5 mg PO BEDTIME 12/17/14 Amlodipine [Norvasc*] 2.5 mg PO DAILY #30 tab 04/10/20 Ergocalciferol (Vitamin D2) [Vitamin D2] 50,000 unit PO Q7D 06/12/23 Lisinopril/Hydrochlorothiazide [Lisinopril-Hctz 20-25 mg Tab] 1 each PO DAILY 06/12/23 Physician Discharge Instructions: 62-year-old female with a past medical history of hypertension, hyperlipidemia, presents to the emergency room with chest pain serial troponins, lipid panel were normal. Patient has some nausea vomiting may be secondary to viral gastroenteritis. Patient needs to follow-up with primary care in 1 to 2 weeks, return to the ER for worsening symptoms. Can discharge home with as needed antiemetics, as needed Tylenol for pain. Resume appropriate home meds. Patient is tolerated diet, is continent of bowel bladder, ambulating independently. A febrile.
--- NOTE | 2023-06-13 09:50 | EKG ---
Test Date: 2023-06-12 Test Time: 03:27:31 Assistant Spa Director: CHASE MEASUREMENT RESULTS: Intervals: Rate: 84 IN: 162 QRSD: 96 QT: 408 QTc: 482 [place]: P: 85 IN: 162 QRS: -33 T: 61 INTERPRETIVE STATEMENTS: Normal sinus rhythm Left axis deviation Pulmonary disease pattern Abnormal ECG Compared to ECG 04/08/2020 16:01:11 Left ventricular hypertrophy no longer present Electronically Signed On 06-13-23 09:46:43 CDT by Jean Mcfadden
[2023-06-13] MEDS: CEFTRIAXONE 1,000 MG in NA CHLORIDE 0.9% 50 ML IVPB SCH (10:01)
[2023-06-13] MEDS: ENOXAPARIN 40 MG/0.4 ML SQ SCH (10:01)
[2023-06-13] MEDS: ASPIRIN 325 MG TAB PO SCH (10:01)
--- NOTE | 2023-06-13 11:03 | RAD REPORT ---
EXAM DESCRIPTION: US - CP - 06/13/2023 10:49 am CLINICAL HISTORY: chest pain, dizziness COMPARISON: <Comparisons> TECHNIQUE: Real-time sonographic evaluation of both carotid systems was performed. Doppler interroga tion was performed with waveform tracing bilaterally. FINDINGS: Normal high resistance waveforms are noted in both external carotid arteries. The common c arotid arteries and internal carotid arteries show normal low resistance waveforms. No significant plaque formation is seen. Peak systolic and end diastolic velocity values and the ICA/ CCA ratios are in the non-hemodynamically significant range. Antegrade flow seen in both vertebral arteries. IMPRESSION: No significant atherosclerotic changes noted. No evidence of a hemodynamically significant stenosis.
[2023-06-13 12:09] VITALS: BP 136/70
[2023-06-13] MEDS ORDERED: AZITHROMYCIN 250 MG TAB PO ONE (13:00)
[2023-06-14] MEDS ORDERED: AZITHROMYCIN IV 500 MG in NA CHLORIDE 0.9% 250 ML IVPB SCH (09:00)
[2023-06-14] MEDS ORDERED: AZITHROMYCIN 1 GM PACKET PO SCH (09:00)
--- NOTE | 2023-06-17 08:39 | ECHO ---
HEIGHT: 5 ft 6 in WEIGHT: 230 lb 0.132 oz DATE OF STUDY: 06/13/[address]: Tabitha Bolivar [place] 2-DIMENSIONAL: YES M.MODE: YES DOPPLER: YES COLOR FLOW: YES TDS: YES PORTABLE: YES DEFINITY: BUBBLE STUDY: DIAGNOSIS: CHEST PAIN CARDIAC HISTORY: CATHERIZATION: NO SURGERY: NO PROSTHETIC VALVE: NO PACEMAKER: NO MEASUREMENTS (cm) DIASTOLIC (NORMALS) SYSTOLIC (NORMALS) IVSd 1.1 (0.6-1.2) LA Diam 2.5 (1.9-4.0) LVEF 51% LVIDd 5.2 (3.5-5.7) LVIDs 3.9 (2.0-3.5) %FS 26% LVPWd 1.2 (0.6-1.2) Ao Diam 2.6 (2.0-3.7) 2 DIMENSIONAL ASSESSMENT: RIGHT ATRIUM: NORMAL LEFT ATRIUM: NORMAL RIGHT VENTRICLE: NORMAL LEFT VENTRICLE: NORMAL TRICUSPID VALVE: MILD TRICUSPID REGURGITATION MITRAL VALVE: NORMAL PULMONIC VALVE: NORMAL AORTIC VALVE: NORMAL PERICARDIAL EFFUSION: NONE AORTIC ROOT: NORMAL LEFT VENTRICULAR WALL MOTION: NORMAL DOPPLER/COLOR FLOW: MILD TRICUSPID REGURGITATION COMMENTS: 1. NORMAL LEFT VENTRICULAR EJECTION FRACTION 55-60% 2. NORMAL WALL MOTION 3. DIASTOLIC DYSFUNCTION 4. MILD TRICUSPID REGURGITATION TECHNOLOGIST: NEIL QUINTEROS
== END 2023-06-13 14:00 | disposition home or self-care (01) ==
LOC: ER 02:03 → ERHOLD 06:07 → 2ND 19:11
PROVIDERS: ADMIT Hospitalist; ATTEND Hospitalist
DX: R07.9 Chest pain, unspecified (principal); I10 Essential (primary) hypertension; E78.5 Hyperlipidemia, unspecified; R42 Dizziness and giddiness; R11.2 Nausea with vomiting, unspecified; E87.6 Hypokalemia; Z11.52 Encounter for screening for COVID-19
CPT/HCPCS: 96361; 93005; 93306; 85025 ×2; 81001; 80048; 36415 ×2; 83735; 80061; 84443; 84484 ×5; 84439; 83690; 80053; 83880; 87635; 86140; 87804 ×2; 70450; 71045; 93880; 96374; 99285; J1650 ×2; J2405; J7040; J7030 ×2; J0696 ×2; G0378 ×4